=== PATIENT | female | born 1990 ===

== ENCOUNTER → 2021-05-21 16:14 | Outpatient (BNVA) | payer OTHER, SELFPAY | PROVIDERS: PCP Hospitalist; Visit Provider Physician Assistant Surgical ==

== ENCOUNTER → 2021-05-28 08:12 | Outpatient (BNVA) | payer OTHER, SELFPAY | PROVIDERS: PCP Hospitalist; Visit Provider Physician Assistant Surgical ==

== ENCOUNTER 2021-06-02 16:01 | Outpatient (REF) | payer OTHER, SELFPAY ==
[2021-06-04 16:24] LABS: H Pylori Breath Test Negative (Negative)
== END 2021-06-02 16:02 | disposition home or self-care (01) ==
LOC: CF 16:01
PROVIDERS: Visit Provider Physician Assistant Surgical
DX: A04.8 Other specified bacterial intestinal infections (principal)
CPT/HCPCS: 36415; 83013

== ENCOUNTER → 2021-06-19 08:00 | Outpatient (BNVA) | payer OTHER, SELFPAY | PROVIDERS: PCP Hospitalist; Visit Provider Dietitian, Registered | DX: E66.01 Morbid (severe) obesity due to excess calories (principal); Z71.3 Dietary counseling and surveillance | CPT/HCPCS: 97802 ==

== ENCOUNTER → 2021-06-20 08:11 | Outpatient (BNVA) | payer OTHER, SELFPAY | PROVIDERS: PCP Hospitalist; Visit Provider Surgery | DX: Z13.89 Encounter for screening for other disorder (principal) ==

== ENCOUNTER 2021-06-21 09:09 | Outpatient (REF) | payer OTHER, SELFPAY ==
--- NOTE | ~2021-06-21 | XR_ITS ---
EXAMINATION: XR chest 2V CLINICAL INFORMATION: Reason for Exam E66.01 - Morbid (severe) obesity due to excess calories COMPARISON: None TECHNIQUE: 2 views of the chest XR/XR chest 2V FINDINGS/IMPRESSION: Clear lungs. No pneumothorax. No pleural effusion. Normal cardiomediastinal silhouette.
[2021-06-21 09:46] LABS: MANUAL DIFF FLAG NO
[2021-06-21 10:19] LABS: Basophils Percent Auto 0.3 % (0-2); Eosinophils Absolute Auto 0.3 X10*3/uL (0.0-0.4); Eosinophils Percent Auto 4.9 % (0-4); Imm Gran Abs Auto 0.01 X10*3/uL (0.00-0.03); Imm Gran Pct Auto 0.2 % (0.0-0.4); Lymphocytes Absolute Auto 1.6 X10*3/uL (1.2-4.9); Lymphocytes Percent Auto 27.9 % (20-40); Mean Corpuscular HGB Conc 33.3 g/dl (31.0-35.0); Mean Corpuscular Hemoglobin 29.1 pg (27.0-33.0); Mean Corpuscular Volume 87.2 fL (80.0-98.0); Mean Platelet Volume 10.5 fL (9.4-12.3); Monocytes Absolute Auto 0.4 X10*3/uL (0.1-1.2); Monocytes Percent Auto 7.7 % (2-11); Neutrophils Absolute Auto 3.4 x10*3/uL (2.0-8.3); Platelet Count 283 X10*3/uL (160-400); Red Blood Count 5.16 X10*6/uL (4.20-5.50); Red Cell Distribution Width 13.2 % (11.0-16.0); White Blood Count 5.7 X10*3/uL (4.8-10.8)
[2021-06-21 10:28] LABS: Alanine Aminotransferase 30 U/L (0-31); Albumin Level 4.3 g/dL (3.5-5.0); Alkaline Phosphatase 83 U/L (39-117); Anion Gap 12 (12-20); Aspartate Amino Transferase 20 U/L (5-31); Bilirubin Total 0.4 mg/dL (0.0-1.0); Blood Urea Nitrogen 12 mg/dL (9-16); C Reactive Protein 3.17 mg/dL (< or = 0.50); Calcium 9.2 mg/dL (8.4-10.2); Carbon Dioxide 25 mmol/L (22-29); Chloride 107 mmol/L (96-108); Cholesterol 107 mg/dL; Estimated Glomerular Filt Rate > 60; Glucose Random 82 mg/dL (60-115); HDL Cholesterol 42 mg/dL; Iron 78 mcg/dL (30-160); LDL Cholesterol Calculated 55 mg/dl; Percent Iron Saturation 22 % (15-50); Potassium 4.2 mmol/L (3.3-5.1); Sodium 140 mmol/L (135-145); Total Iron Binding Capacity 352 mcg/dL (228-428); Total Protein 7.7 g/dL (6.5-8.0); Triglycerides 50 mg/dL; Unsaturated Iron Binding 274 ug/dL
[2021-06-21 10:29] LABS: Estimated Average Glucose 108 mg/dL; Hemoglobin A1c % 5.4 %
[2021-06-21 10:53] LABS: Ferritin 132 ng/mL (10-122); TSH reflex Free T4 1.71 uIU/mL (0.32-4.0)
[2021-06-21 11:05] LABS: Vitamin D 25-OH Total 14.4 ng/mL (>30)
[2021-06-23 09:33] LABS: Folate 14.4 ng/mL (> or = 4.0); Vitamin B12 639 pg/mL (200-900)
[2021-06-23 12:41] LABS: Calcium (PTHI) 9.4 mg/dL (8.6-10.2); PTHI 57 pg/mL (16-77)
[2021-06-25 06:31] LABS: Zinc 69 mcg/dL (60-130)
[2021-06-25 17:00] LABS: Vitamin A 43 mcg/dL (38-98)
[2021-06-26 16:42] LABS: Vitamin B1 11 nmol/L (8-30)
== END 2021-06-21 09:10 | disposition home or self-care (01) ==
LOC: HO.LAB 09:09
PROVIDERS: PCP Hospitalist; Visit Provider Physician Assistant Surgical
DX: E66.01 Morbid (severe) obesity due to excess calories (principal)
CPT/HCPCS: 36415; 71046; 80053; 80061; 82306; 82607; 82728; 82746; 83036; 83540; 83970; 84425; 84443; 84590; 84630; 85025; 86140

== ENCOUNTER 2021-07-09 08:57 | Outpatient (REF) | payer OTHER, SELFPAY ==
--- NOTE | ~2021-07-09 | US_ITS ---
EXAMINATION: US COMPLETE ABDOMEN WITH LIVER ELASTOGRAPHY CLINICAL INFORMATION: Morbid obesity COMPARISON: None. TECHNIQUE: Real-time imaging of the abdominal viscera. Noninvasive ultrasound liver fibrosis assessment is performed using [employer] ElastPQ point quantification shear wave elastography (2D-SWE) with a C5-2 MHz transducer. Multiple elastography samples are obtained. FINDINGS: PANCREAS: Normal. The visualized pancreatic head and body are normal in appearance. The remainder of the pancreas is obscured from visualization by the overlying bowel gas. ABDOMINAL AORTA: The proximal, middle, and distal aortic segments are normal in caliber. INFERIOR VENA CAVA: Visualized portions are normal. LIVER: There is diffusely increased echogenicity consistent with fatty infiltration. No focal mass identified. No intrahepatic bile duct dilatation is seen. The right lobe measures 14.5 cm in length. The left lobe measures 10.6 cm in length. Portal flow is hepatopedal Shear wave liver elastography median stiffness is 1.34 m/s (reference: normal median stiffness is 1.3 m/s or less). IQR/median stiffness to assess sampling precision is 0.07 (reference: good quality data set is IQR/median stiffness of 0.15 or less). GALLBLADDER: Normal. The gallbladder is physiologically distended without evidence of stones, sludge, polyps, wall thickening or pericholecystic fluid. COMMON BILE DUCT: Normal in caliber measuring 0.5 cm in diameter. RIGHT KIDNEY: Normal. No hydronephrosis. No renal calculi or focal parenchymal lesions. The kidney measures 11.0 cm in maximum dimension. LEFT KIDNEY: Normal. No hydronephrosis. No renal calculi or focal parenchymal lesions. The kidney measures 11.5 cm in maximum dimension. SPLEEN: Normal. The spleen measures 10.2 cm in maximum dimension. FREE FLUID: None. US/US abdomen comp w elastography IMPRESSION: 1. Fatty infiltration of the liver. 2. Liver elastography: In the absence of other known clinical signs, measurements rule out compensated advanced chronic liver disease. If there are known clinical signs, further testing may be needed for confirmation. REFERENCE: Society of Radiologists in Ultrasound Liver Stiffness Thresholds (2020): LIVER STIFFNESS THRESHOLDS: *Liver Stiffness equal or less than 1.3 m/s: High probability of being normal. *Liver Stiffness less than 1.7 m/s: In the absence of other known clinical signs, rules out compensated advanced chronic liver disease. *Liver Stiffness 1.7-2.1 m/s: Suggestive of compensated advanced chronic liver disease but need further test for confirmation. *Liver Stiffness over 2.1 m/s: Rules in compensated advanced chronic liver disease. *Liver Stiffness over 2.4 m/s: Suggestive of clinically significant portal hypertension. QUALITY OF DATA SET: *IQR/Median value equal or less than 0.15 implies a quality data set. *IQR/Median value over 0.15 implies a poor quality data set. SIGNIFICANT CHANGE FROM PRIOR EXAM: Significant change if liver stiffness measurement is 10% or greater from prior exam. OTHER CONSIDERATIONS: The stage of liver fibrosis may be overestimated in the setting of acute hepatitis, liver inflammation, elevated liver function tests, hepatic vascular congestion, obstructive cholestasis, non-fasting state, and infiltrative diseases such as amyloidosis and lymphoma. In some patients with NAFLD, the liver stiffness thresholds for compensated advanced chronic liver disease may be lower. In causes other than viral hepatitis and NAFLD, liver stiffness thresholds are not well established.
--- NOTE | ~2021-07-09 | FL_ITS ---
EXAMINATION: XR FLUOROSCOPY UPPER GI WITH AIR CLINICAL INFORMATION: Morbid obesity. COMPARISON: None TECHNIQUE: Air-contrast upper GI examination. FINDINGS: Patient swallowed thin and thick barium without difficulty. There is normal apposition of the focal cords while saying 'E.' There is normal elevation of the soft palate while saying 'candy.' No nasopharyngeal reflux or tracheal aspiration. There is noted to be cricopharyngeal hypertrophy without evidence of Zenker's diverticulum. No persistent stricture or ulceration is seen within the esophagus. No hiatal hernia was noted. There was free gastroesophageal reflux to the thoracic inlet during positioning on the table. This cleared slowly. No tertiary contractions were appreciated. The stomach appears unremarkable without evidence of abnormal mass or ulceration. There is normal distensibility of the gastric wall. There was no delay in gastric emptying. The duodenal bulb and sweep appeared unremarkable. FLUOROSCOPY TIME: 1.5 minutes DOSE AREA PRODUCT: 12.9 Gy-cm2 (aquino-centimeter squared) FL/FL upper GI w air IMPRESSION: Free gastroesophageal reflux to the level of the thoracic inlet which cleared slowly.
== END 2021-07-09 08:58 | disposition home or self-care (01) ==
LOC: HO.US 08:57
PROVIDERS: PCP Hospitalist; Visit Provider Surgery
DX: Z01.818 Encounter for other preprocedural examination (principal); E66.01 Morbid (severe) obesity due to excess calories; K21.9 Gastro-esophageal reflux disease without esophagitis
CPT/HCPCS: 74246; 76705; 76981

== ENCOUNTER 2021-07-24 07:10 | Emergency (ER) | payer OTHER, SELFPAY ==
[2021-07-24 07:20] VITALS: BP 132/94; PULSE 84; RESP 16; TEMP 37.1; O2SAT 96; BMI 41.9
--- NOTE | 2021-07-24 07:28 | ED_ITS ---
HPI - Dental/Oral General Chief complaint: Dental/Oral Stated complaint: jaw pain Time Seen by Provider: 07/24/21 07:28 Source: patient Mode of arrival: ambulatory Limitations: no limitations History of Present Illness MD Complaint: tooth pain (L sided jaw pain) Onset (ago): day(s) (since Wednesday) Duration: worsening Severity: severe Relieving factors: nothing Exacerbating factors: chewing Context: other (molars are removed, worse in AM, wakes up with jaw pain, job is stressful) Associated symptoms: other (jaw pain, swelling over L TMJ site) Treatment prior to arrival: other (motrin this AM) Related Data Previous Rx's Medication Instructions Recorded albuterol sulfate 90 mcg/actuation 2 puff PO Q4H PRN #8.5 g 06/10/21 aerosol inhaler cetirizine 10 mg tablet 10 mg PO DAILY #90 tab 06/10/21 fluticasone propionate 110 1 puff PO BID #12 g 06/10/21 mcg/actuation HFA aerosol inhaler (Flovent HFA) fluticasone propionate 50 2 spray INTRANASAL DAILY 30 Days 06/10/21 mcg/actuation nasal #16 g spray,suspension (Allergy Relief (fluticasone)) montelukast 10 mg tablet 10 mg PO DAILY #90 tab 06/10/21 cholecalciferol (vitamin D3) 125 125 mcg PO DAILY #30 cap 06/23/21 mcg (5,000 unit) capsule cyclobenzaprine 10 mg tablet 10 mg PO TID PRN #14 tab 07/24/21 prednisone 20 mg tablet 40 mg PO DAILY 4 Days #8 tab 07/24/21 Allergies Allergy/AdvReac Type Severity Reaction Status Date / Time cats Allergy Intermediate watery Uncoded 06/20/21 10:54 eyes, shortness of breath. Review of Systems Review of Systems: Constitutional : No Fever, No Chills ENT/Mouth : No swallowing difficulty, no change in voice, positive dental pain, positive jaw pain, positive facial swelling Eyes: No Eye Pain, No Swelling Cardiovascular : No Chest Pain, No SOB Respiratory : No Cough, No Sputum Gastrointestinal : No Nausea, No Vomiting, No Diarrhea Genitourinary : No Dysuria Musculoskeletal : No Myalgias Skin : No rash Neuro : No Weakness, No Numbness, No Headache PMFSH Past Medical History Attestation statement: The following information was validated with the patient. Medical History (Updated 07/24/21 @ 07:30 by Asha Woods DO) Back pain Physical exam, annual Family History Family History Mother Pre-diabetes Father Hypertension Vertigo Brother No problems noted. Sister Asthma Social History Social History Alcohol intake: current Alcohol intake frequency: holidays/special occasions only Alcohol type: wine Patient Tobacco Use Status: Never used Tobacco Advance Directives: No Advance Directives Information Provided: No Patient : No Physical Exam Vital Signs: Appearance: Alert. Oriented X3. No acute distress. Eyes: Pupils equal, round and reactive to light. ENT: inside of mouth is normal, no signs of decay, fluctuance, abscess, erythema, trismus noted mild, no ttp over L parotid area, L TMJ acutely ttp with palpation and mild swelling noted, no lymphadenopathy no submandibular or sublingual swelling, normal TMs bilaterally, opening mouth shows S curve present. very ttp masseter muscle as well. Acutely tender over L TMJ joint with opening and closing mouth Neck: Normal inspection. Neck supple. CVS: Pulses normal. Respiratory: No respiratory distress. Abdomen: Atraumatic Skin: Skin warm and dry. Normal skin color. Extremities: No lower extremity edema. Neuro: Oriented X 3. No motor deficit. No sensory deficit. MDM - Dental/Oral MDM Narrative Medical decision making narrative: 31 yo female with hx of asthma comes in with L sided jaw pain with no evidence of intraoral infection/ear infection. L TMJ joint is midly swollen with acute pain to the TMJ itself which reproduces pain. Suspect acute TMJ syndrome. She sleeps on that side and often wakes up with jaw pain suspect from grinding. At this time msucle relaxers, prednisone for acute inflammation, NSAIDs. Patient to see dentist and get bite guard. Discharge Plan Discharge Clinical Impression: TMJ syndrome Patient Disposition: Home, Self-Care Instructions: Temporomandibular Disorder (ED), Arthralgia (ED) Additional Instructions: return to ED for any worsening symptoms or concerns try a bite guard from pharmacy you can see your dentist take motrin 400 to 600 mg every 6 hours as needed for pain Prescriptions: New cyclobenzaprine 10 mg tablet 10 mg PO TID PRN (Reason: muscle spasm) Qty: 14 0RF prednisone 20 mg tablet 40 mg PO DAILY 4 Days Qty: 8 0RF No Action cholecalciferol (vitamin D3) 125 mcg (5,000 unit) capsule 125 mcg PO DAILY Qty: 30 3RF cetirizine 10 mg tablet 10 mg PO DAILY Qty: 90 3RF montelukast 10 mg tablet 10 mg PO DAILY Qty: 90 3RF fluticasone propionate [Allergy Relief (fluticasone)] 50 mcg/actuation spra y,suspension 2 spray intranasal DAILY 30 Days Qty: 16 11RF Rx Instructions: administer into each nostril albuterol sulfate 90 mcg/actuation HFA aerosol inhaler 2 puff PO Q4H PRN (Reason: bronchospasm) Qty: 8.5 11RF Flovent HFA 110 mcg/actuation HFA aerosol inhaler 1 puff PO BID Qty: 12 11RF Stand Alone Forms: Work/School Release
[2021-07-24] MEDS: predniSONE 20 MG TABLET 40 MG PO (07:34)
[2021-07-24] MEDS: Cyclobenzaprine HCl 10 MG TABLET PO (07:34)
== END 2021-07-24 07:42 | disposition home or self-care (01) ==
PROVIDERS: Emergency Provider Emergency Medicine; PCP Hospitalist
DX: M26.602 Left temporomandibular joint disorder, unspecified (principal); R68.84 Jaw pain; Z79.899 Other long term (current) drug therapy
CPT/HCPCS: 99283

== ENCOUNTER 2021-10-15 19:44 | Emergency (ER) | payer OTHER, SELFPAY | END 2021-10-15 21:51 | disposition left against medical advice (07) | PROVIDERS: Emergency Provider Emergency Medicine; PCP Hospitalist | DX: R68.84 Jaw pain (principal); F12.10 Cannabis abuse, uncomplicated ==

== ENCOUNTER 2022-03-04 12:09 | Outpatient (REF) | payer OTHER, SELFPAY ==
[2022-03-04 15:59] LABS: Influenza A PCR POSITIVE (Negative); Influenza B PCR NEGATIVE (Negative); Resp Syncy Virus RNA Qual PCR NEGATIVE (Negative); SARS COV2 PCR INHOUSE NEGATIVE (Negative)
== END 2022-03-04 12:10 | disposition home or self-care (01) ==
LOC: HO.LAB 12:09
PROVIDERS: Visit Provider Nurse Practitioner Family
DX: Z20.822 Contact with and (suspected) exposure to COVID-19 (principal); R09.89 Other specified symptoms and signs involving the circulatory and respiratory systems
CPT/HCPCS: 0241U

== ENCOUNTER → 2022-07-10 07:56 | Outpatient (BNVA) | payer OTHER, SELFPAY | PROVIDERS: PCP Hospitalist; Visit Provider Surgery | DX: Z13.89 Encounter for screening for other disorder (principal) ==

== ENCOUNTER 2022-07-20 07:51 | Outpatient (REF) | payer OTHER, SELFPAY ==
[2022-07-20 08:05] LABS: MANUAL DIFF FLAG NO
[2022-07-20 08:12] LABS: Basophils Percent Auto 0.4 % (0-2); Eosinophils Absolute Auto 0.2 X10*3/uL (0.0-0.4); Eosinophils Percent Auto 2.9 % (0-4); Hematocrit 42.7 % (37.0-47.0); Hemoglobin 14.4 g/dl (12.0-16.0); Imm Gran Abs Auto 0.01 X10*3/uL (0.00-0.03); Imm Gran Pct Auto 0.1 % (0.0-0.4); Lymphocytes Absolute Auto 1.8 X10*3/uL (1.2-4.9); Lymphocytes Percent Auto 25.2 % (20-40); Mean Corpuscular HGB Conc 33.7 g/dl (31.0-35.0); Mean Corpuscular Hemoglobin 29.1 pg (27.0-33.0); Mean Corpuscular Volume 86.4 fL (80.0-98.0); Mean Platelet Volume 10.7 fL (9.4-12.3); Monocytes Absolute Auto 0.5 X10*3/uL (0.1-1.2); Monocytes Percent Auto 6.5 % (2-11); Neutrophils Absolute Auto 4.7 x10*3/uL (2.0-8.3); Neutrophils Percent Auto 64.9 % (45-73); Platelet Count 252 X10*3/uL (160-400); Red Blood Count 4.94 X10*6/uL (4.20-5.50); Red Cell Distribution Width 13.2 % (11.0-16.0); White Blood Count 7.2 X10*3/uL (4.8-10.8)
[2022-07-20 08:14] LABS: Estimated Average Glucose 103 mg/dL; Hemoglobin A1c % 5.2 %
--- NOTE | 2022-07-20 08:14 | ECG_ITS ---
Test Reason : morbid obesity Blood Pressure : / mmHG Vent. Rate : 081 BPM Atrial Rate : 081 BPM P-R Int : 150 ms QRS Dur : 084 ms QT Int : 372 ms P-R-T Axes : 060 052 023 degrees QTc Int : 432 ms Normal sinus rhythm Normal ECG No previous ECGs available Referred By: Al Chowdary Electronically Signed By:MU FERGUSON MD
[2022-07-20 09:11] LABS: Alanine Aminotransferase 24 U/L (0-31); Albumin Level 4.1 g/dL (3.5-5.0); Alkaline Phosphatase 65 U/L (39-117); Anion Gap 12 (12-20); Aspartate Amino Transferase 19 U/L (5-31); Bilirubin Total 0.5 mg/dL (0.0-1.0); Blood Urea Nitrogen 10 mg/dL (9-16); C Reactive Protein 1.05 mg/dL (< or = 0.50); Carbon Dioxide 23 mmol/L (22-29); Chloride 109 mmol/L (96-108); Cholesterol 104 mg/dL; Estimated Glomerular Filt Rate > 60; HDL Cholesterol 36 mg/dL; Iron 86 mcg/dL (30-160); LDL Cholesterol Calculated 56 mg/dl; Percent Iron Saturation 29 % (15-50); Potassium 4.3 mmol/L (3.3-5.1); Sodium 140 mmol/L (135-145); Total Iron Binding Capacity 301 mcg/dL (228-428); Triglycerides 62 mg/dL; Unsaturated Iron Binding 215 ug/dL
[2022-07-20 09:12] LABS: Ferritin 99 ng/mL (10-122); Folate 13.1 ng/mL (> or = 4.0); Insulin 26 uU/mL (2-29); TSH reflex Free T4 1.88 uIU/mL (0.32-4.0); Vitamin B12 683 pg/mL (200-900); Vitamin D 25-OH Total 18.8 ng/mL (>30)
[2022-07-20 12:01] LABS: Glucose Random 95 mg/dL (60-115)
[2022-07-21 19:43] LABS: Calcium (PTHI) 8.7 mg/dL (8.6-10.2); PTHI 51 pg/mL (16-77)
[2022-07-24 05:22] LABS: Zinc 75 mcg/dL (60-130)
[2022-07-25 14:52] LABS: Vitamin B1 14 nmol/L (8-30)
[2022-07-26 18:18] LABS: Vitamin A 41 mcg/dL (38-98)
== END 2022-07-20 07:52 | disposition home or self-care (01) ==
LOC: HO.LAB 07:51
PROVIDERS: PCP Hospitalist; Visit Provider Surgery
DX: E66.01 Morbid (severe) obesity due to excess calories (principal); F50.9 Eating disorder, unspecified
CPT/HCPCS: 36415; 80053; 80061; 82306; 82607; 82728; 82746; 83036; 83525; 83540; 83970; 84425; 84443; 84590; 84630; 85025; 86140; 93005

== ENCOUNTER → 2022-08-05 08:03 | Outpatient (BNVA) | payer OTHER, SELFPAY | PROVIDERS: PCP Hospitalist; Visit Provider Physician Assistant Surgical ==

== ENCOUNTER 2022-08-05 18:16 | Outpatient (REF) | payer OTHER, SELFPAY ==
[2022-08-06 14:56] LABS: H Pylori Breath Test Negative (Negative)
== END 2022-08-05 18:17 | disposition home or self-care (01) ==
LOC: HO.LNP 18:16
PROVIDERS: Visit Provider Surgery
DX: E66.01 Morbid (severe) obesity due to excess calories (principal)
CPT/HCPCS: 83013

== ENCOUNTER → 2022-08-24 14:00 | Outpatient (BNVA) | payer OTHER, SELFPAY | PROVIDERS: PCP Hospitalist; Visit Provider Counselor Mental Health ==

== ENCOUNTER → 2022-09-07 08:07 | Outpatient (BNVA) | payer OTHER, SELFPAY | PROVIDERS: PCP Hospitalist; Visit Provider Surgery ==

== ENCOUNTER → 2022-09-11 09:18 | Outpatient (BNVA) | payer OTHER, SELFPAY | PROVIDERS: PCP Hospitalist; Visit Provider Dietitian, Registered | DX: E66.01 Morbid (severe) obesity due to excess calories (principal); Z68.41 Body mass index [BMI] 40.0-44.9, adult; Z71.3 Dietary counseling and surveillance | CPT/HCPCS: 97803 ==

== ENCOUNTER → 2022-09-21 09:00 | Outpatient (BNVA) | payer OTHER, SELFPAY | PROVIDERS: PCP Hospitalist; Visit Provider Counselor Mental Health ==

== ENCOUNTER → 2022-09-25 13:58 | Outpatient (BNVA) | payer OTHER, SELFPAY | PROVIDERS: PCP Hospitalist; Visit Provider Dietitian, Registered | DX: E66.9 Obesity, unspecified (principal); Z71.3 Dietary counseling and surveillance | CPT/HCPCS: 97803 ==

== ENCOUNTER 2022-10-12 13:08 | Outpatient (AMB) | payer OTHER, SELFPAY ==
--- NOTE | 2022-10-12 13:08 | MHC.OFFVISWM ---
Intake VS Expanded 10/12/22 13:16 Height 5 ft 6 in Weight 247 lb 6.4 oz BMI 39.9 BP 120/69 Blood Pressure Location Rt brachial Blood Pressure Position Sitting Pulse 102 H Pulse Source Pulse Oximeter Temp 97.6 F Temperature Source Temporal Artery Scan Pulse Oximetry 95 Oxygen Delivery Method Room Air Body Fat 108.6 Body Fat Percentage 43.9 Free Fat Mass 138.6 Muscle Mass 131.6 Visceral Mass 11.0 Water Mass 99.4 BMR 1,962 Intake Visit Reasons: (OV) F/U [employer] Required: No Allergies cats Allergy (Intermediate, Uncoded 10/12/22 13:12) watery eyes, shortness of breath. HPI HPI Comments History of Present Illness Details 32 yo female returns for f/u for pre op planning weight today 247.4 pounds with a BMI of 39.9. Initial weight on 07/10/22 was 262.2 Weight loss 14.8 pounds She states she just got back from 2 week vacation in [facility]. She brought her shakes but the packaging broke and she only had enough for a couple of days. Meal plan: 2 Isopure (20 gm per scoop) protein shakes (1/2 scoop each in water), 3 Zone Perfect protein bars and one meal (8 forks of meat and 8 forks of salad or vegetables) Drinking 64 oz water daily Exercise plan: stationary bike, daily, 300-330 calories [facility] Medical History Back pain Physical exam, annual Family History Mother Pre-diabetes Father Hypertension Vertigo Brother No problems noted. Sister Asthma Social History Alcohol intake: current Alcohol intake frequency: holidays/special occasions only Alcohol type: wine Patient Tobacco Use Status: Never used Tobacco e-Cigarette/Vaping Use: Never Used Second Hand Smoke Exposure: No service: No Current occupational status: employed Current occupation: [employer] Cognitive needs: No Hearing needs: No Vision needs: Yes Review of Systems Const All systems reviewed & are unremarkable except as noted in HPI and below Physical Exam Const General: healthy appearing and no acute distress Resp Effort & Inspection: normal respiratory effort Auscultation: clear to auscultation bilaterally Cardio Rate: regular rate Rhythm: regular rhythm GI Auscultation: normal bowel sounds Extrem General: Yes normal to inspection Assessment & Plan Assessment & Plan (1) Obesity (BMI 30-39.9): Code(s): E66.9 - Obesity, unspecified Plan: Continue same meal plan except remove one bar Likely surgery 10/29/22, checking on scheduling, if confirmed will send pre-op meal plan Coding Level of Care Code Tele Est Pt Level 2 (07675) Diagnoses Obesity (BMI 30-39.9) E66.9
[2022-10-12 13:16] VITALS: BP 120/69; PULSE 102; TEMP 36.4; O2SAT 95; BMI 39.9
== END 2022-10-12 13:38 | disposition home or self-care (01) ==
PROVIDERS: PCP Hospitalist; Visit Provider Physician Assistant Surgical
DX: E66.9 Obesity, unspecified (principal); Z68.39 Body mass index [BMI] 39.0-39.9, adult
CPT/HCPCS: 99499

== ENCOUNTER → 2022-10-12 13:08 | Outpatient (BNVA) | payer OTHER, SELFPAY | PROVIDERS: PCP Hospitalist; Visit Provider Physician Assistant Surgical ==

== ENCOUNTER 2022-10-20 09:05 | Outpatient (REF) | payer OTHER, SELFPAY ==
[2022-10-20 10:17] LABS: MANUAL DIFF FLAG NO
[2022-10-20 11:12] LABS: Basophils Percent Auto 0.5 % (0-2); Eosinophils Absolute Auto 0.1 X10*3/uL (0.0-0.4); Eosinophils Percent Auto 1.6 % (0-4); Hemoglobin 14.7 g/dl (12.0-16.0); Imm Gran Abs Auto 0.01 X10*3/uL (0.00-0.03); Imm Gran Pct Auto 0.2 % (0.0-0.4); Lymphocytes Absolute Auto 1.9 X10*3/uL (1.2-4.9); Mean Corpuscular HGB Conc 32.7 g/dl (31.0-35.0); Mean Corpuscular Volume 88.8 fL (80.0-98.0); Mean Platelet Volume 11.2 fL (9.4-12.3); Monocytes Absolute Auto 0.3 X10*3/uL (0.1-1.2); Monocytes Percent Auto 5.4 % (2-11); Neutrophils Absolute Auto 3.9 x10*3/uL (2.0-8.3); Neutrophils Percent Auto 62.3 % (45-73); Platelet Count 236 X10*3/uL (160-400); Red Blood Count 5.07 X10*6/uL (4.20-5.50); Red Cell Distribution Width 13.2 % (11.0-16.0); White Blood Count 6.2 X10*3/uL (4.8-10.8)
[2022-10-20 11:20] LABS: Estimated Average Glucose 105 mg/dL; Hemoglobin A1c % 5.3 %
[2022-10-20 11:22] LABS: Partial Thromboplastin Time 28.9 SEC (26.0-36.4)
[2022-10-20 12:17] LABS: Alanine Aminotransferase 31 U/L (0-31); Alkaline Phosphatase 68 U/L (39-117); Anion Gap 15 (12-20); Aspartate Amino Transferase 18 U/L (5-31); Bilirubin Total 0.5 mg/dL (0.0-1.0); Blood Urea Nitrogen 10 mg/dL (9-16); C Reactive Protein 2.11 mg/dL (< or = 0.50); Calcium 9.3 mg/dL (8.4-10.2); Carbon Dioxide 23 mmol/L (22-29); Chloride 107 mmol/L (96-108); Cholesterol 125 mg/dL; Estimated Glomerular Filt Rate > 60; Glucose Random 73 mg/dL (60-115); HDL Cholesterol 40 mg/dL; Iron 78 mcg/dL (30-160); LDL Cholesterol Calculated 72 mg/dl; Percent Iron Saturation 27 % (15-50); Potassium 3.9 mmol/L (3.3-5.1); Sodium 141 mmol/L (135-145); Total Iron Binding Capacity 289 mcg/dL (228-428); Total Protein 7.5 g/dL (6.5-8.0); Triglycerides 68 mg/dL; Unsaturated Iron Binding 211 ug/dL; Vitamin B12 493 pg/mL (200-900)
[2022-10-20 12:39] LABS: Ferritin 124 ng/mL (10-122); TSH reflex Free T4 2.65 uIU/mL (0.32-4.0); Vitamin D 25-OH Total 20.1 ng/mL (>30)
[2022-10-21 19:17] LABS: Calcium (PTHI) 8.9 mg/dL (8.6-10.2); PTHI 46 pg/mL (16-77)
[2022-10-23 02:57] LABS: Vitamin A 43 mcg/dL (38-98)
[2022-10-23 17:08] LABS: Zinc 80 mcg/dL (60-130)
[2022-10-24 11:23] LABS: Vitamin B1 10 nmol/L (8-30)
== END 2022-10-20 09:06 | disposition home or self-care (01) ==
LOC: HO.LAB 09:05
PROVIDERS: Physician Assistant Surgical; PCP Hospitalist; Visit Provider Surgery
DX: Z01.818 Encounter for other preprocedural examination (principal); E66.9 Obesity, unspecified
CPT/HCPCS: 36415; 80053; 80061; 82306; 82607; 82728; 83036; 83540; 83970; 84425; 84443; 84590; 84630; 85025; 85610; 85730; 86140

== ENCOUNTER 2022-10-27 | Day surgery (SDC) | payer OTHER, SELFPAY ==
[2022-10-20 10:37] VITALS: BMI 39.9
--- NOTE | 2022-10-21 08:14 | MHC.SHP ---
Pre-Procedural Eval Section A Date of Service: 10/21/22 The patient is an INPATIENT: No The History & Physical has been completed within 30 days and I have reviewed it.: Yes Section B Chief Complaint: Morbid (severe) obesity due to excess calories Relevant Family History (Specify if Yes): No Relevant Social History: None Present Medications: None Medical History: No relevant PMH History of Previous Operations: No relevant previous surgery Allergies: Allergies Allergy/AdvReac Type Severity Reaction Status Date / Time cats Allergy Intermediate watery Uncoded 10/12/22 13:12 eyes, shortness of breath. Review of Systems Sugical H&P ROS: Negative: Constitution, Cardiovascular, Respiratory, Neurological, Psychiatric, Hem-Onc, Allergic/Immunologic, Gastrointestinal, Genitourinary, Musculoskeletal, Integumentary, Endocrine and Eyes/Ears/Nose/Throat Exam Surgical H&P Exam: Normal: HEENT, Normal: Heart, Normal: Lungs, Normal: Extremities, Normal: Abdomen, Normal: Skin and Normal: Neurological Plan Diagnosis/Plan: Unchanged I have reviewed the history and physical and performed a pertinent physical examination on my patient. No changes have occurred unless specified. Time Spent With Patient Time: Total time managing care of this patient today ____ minutes.
--- NOTE | 2022-10-26 09:07 | HO.ANESPROP2 ---
Documented by User: Casie Delarosa NP 10/26/22 09:08 HPI - Anesthesia Eval Consult details Narrative: 32yo F for Gastrectomy Sleeve,Egd, poss diaphragmatic hernia, poss Ventral hernia,poss open PMFSH Active Problems Active Problems: All Active Problems (Updated 10/20/22 @ 10:27 by La Avitia RN) Asthma, mild intermittent, well-controlled (Acute) Morbid obesity (Acute) Seasonal allergies (Acute) Adjustment disorder (Acute) Cannabis use disorder, mild, abuse (Acute) Right-sided temporomandibular joint pain-dysfunction syndrome (Acute) Viral infection (Acute) Influenza A (Acute) Obesity (BMI 30-39.9) (Acute) Pre-op evaluation (Acute) Back pain (Acute) Past Medical History Medical History Asthma Back pain Migraines Physical exam, annual Family History Family History Mother Pre-diabetes Father Hypertension Vertigo Brother No problems noted. Sister Asthma Social History Social History Are you a primary women's health care nurse practitioner to a significant other at home: No Do you presently have visiting nurse or other home services: No Alcohol intake: current Alcohol intake frequency: holidays/special occasions only Alcohol type: wine Patient Tobacco Use Status: Never used Tobacco e-Cigarette/Vaping Use: Never Used Second Hand Smoke Exposure: No service: No Current occupational status: employed Current occupation: [employer] Cognitive needs: No Hearing needs: No Vision needs: Yes Meds Allergies Allergy/AdvReac Type Severity Reaction Status Date / Time cats Allergy Intermediate watery Uncoded 10/12/22 13:12 eyes, shortness of breath. Home Medications Medication Instructions Recorded Confirmed Last Taken Type fluticasone propionate 50 2 spray intranasal DAILY PRN 10/20/22 10/20/22 Unknown History mcg/actuation nasal Allergy Symptoms spray,suspension (Allergy Relief (fluticasone)) montelukast 10 mg tablet 10 mg PO BEDTIME 10/20/22 10/20/22 Unknown History Exam Exam Date and Time: October 26, 2022 0907 Height,Weight and Vital Signs: Height 5 ft 6 in Weight 112.037 kg Pertinent Lab Results Pertinent Lab Results: Laboratory Tests 10/20/22 10/20/22 10:15 10:15 WBC 6.2 Hgb 14.7 Hct 45.0 Plt Count 236 Sodium 141 Potassium 3.9 Chloride 107 Carbon Dioxide 23 BUN 10 Creatinine 0.75 Narrative Narrative: EKG 07/2022 Vent. Rate : 081 BPM ? ? Atrial Rate : 081 BPM ?? P-R Int : 150 ms? QRS Dur : 084 ms ? ? QT Int : 372 ms ? ? ? P-R-T Axes : 060 052 023 degrees ?? QTc Int : 432 ms ? Normal sinus rhythm Normal ECG No previous ECGs available Assessment and Plan Assessment Anesthesia Assessment: Chart Reviewed Documented by User: Cynthia Miller MD 10/27/22 11:27 [facility] Active Problems Active Problems: All Active Problems (Updated 10/27/22 @ 11:22 by Cynthia Miller MD) Asthma, mild intermittent, well-controlled (Acute) Morbid obesity (Acute) Seasonal allergies (Acute) Adjustment disorder (Acute) Cannabis use disorder/abuse (Acute) Right-sided temporomandibular joint pain-dysfunction syndrome (Acute) Viral infection (Acute) Influenza A (Acute) Obesity (BMI 30-39.9) (Acute) Pre-op evaluation (Acute) Back pain (Acute) Past Medical History Medical History Asthma Back pain Migraines Physical exam, annual Family History Family History Mother Pre-diabetes Father Hypertension Vertigo Brother No problems noted. Sister Asthma Social History Social History Are you a primary women's health care nurse practitioner to a significant other at home: No Do you presently have visiting nurse or other home services: No Alcohol intake: current Alcohol intake frequency: holidays/special occasions only Alcohol type: wine Patient Tobacco Use Status: Never used Tobacco e-Cigarette/Vaping Use: Never Used Second Hand Smoke Exposure: No service: No Current occupational status: employed Current occupation: [employer] Cognitive needs: No Hearing needs: No Vision needs: Yes Meds Allergies Allergy/AdvReac Type Severity Reaction Status Date / Time cats Allergy Intermediate watery Uncoded 10/12/22 13:12 eyes, shortness of breath. Home Medications Medication Instructions Recorded Confirmed Last Taken Type fluticasone propionate 50 2 spray intranasal DAILY PRN 10/20/22 10/20/22 Unknown History mcg/actuation nasal Allergy Symptoms spray,suspension (Allergy Relief (fluticasone)) montelukast 10 mg tablet 10 mg PO BEDTIME 10/20/22 10/20/22 Unknown History
[2022-10-26 13:28] LABS: COVID-19 Test Negative (Negative); IDNOW Serial# 9DB6401D
[2022-10-27] VITALS (14 sets, daily range): BP systolic 125–147; BP diastolic 70–92; PULSE 70–89; RESP 12–20; TEMP 36–36.9; O2SAT 95–100
[2022-10-27 11:35] LABS: UPreg QC Valid YES; Urine Pregnancy NEGATIVE (NEGATIVE)
[2022-10-27] MEDS: Lactated Ringers 1,000 ML 999 ML IV (11:43)
[2022-10-27] MEDS: Aprepitant 32 MG/4.4 ML VIAL IVPUSH (11:50)
[2022-10-27] MEDS: Albuterol Sulfate (0.083%) 2.5 MG/3 ML VIAL.NEB INHALE (12:02)
--- NOTE | 2022-10-27 12:39 | P.BOP_ITS ---
Brief Operative Note Date of Service: 10/27/22 Pre-op diagnosis: Morbid obesity with associated comorbidities (see below) Post-op diagnosis: same Procedure: INITIAL PATIENT BMI ON PRESENTATION AT OUR OFFICE: 42.5 kg/m2 LAST BMI BEFORE SURGERY: 40 kg/m2 COMORBIDITIES: asthma, back pain, GERD, liver steatosis ?The patient presented to the Weight Management Program with significant obesity that was negatively impacting the patient's comorbidities as listed above.? The program is a phased program with a special focus on preoperative medical weight management to promote substantial weight loss and prepare the patients for the second phase of the program: bariatric surgery. The patient participated in an intensive weekly lifestyle ?intervention and exercise program during which the patient ?has lost between the initial office visit and the last preoperative visit 21.6lbs, or 8.08% of initial actual body weight. It was deemed appropriate for the patient to now have bariatric surgery. In light of the current Covid-19 pandemic and the well documented strong association of obesity and increased risk of worse outcomes if infected with Covid-19 (REFERENCES: https://pubmed.ncbi.nlm.nih.gov/08634329/ ,? https://pubmed.ncbi.nlm.nih.gov/14173044/ ), any delay in undergoing bariatric surgery may lead to the patient's worsening health condition and increased?risk of more severe Covid-19 disease if infected. In addition a recent?study from [facility] published in [employer] on 03/17/2021 ([email or web address]) found that, among patients with obesity, substantial weight loss achieved with surgery was associated with improved outcomes of COVID-19 infection. The findings suggest that obesity can be a modifiable risk factor for the severity of COVID-19 infection. In addition, the patient met the BMI-criteria for bariatric surgery based on the BMI on initial presentation. The patient should not be penalized for achieving such weight loss because ?it is not sustainable long-term without surgical intervention and it was achieved in preparation for bariatric surgery ?under my direction and based on my published research ([email or web address]).[email or web address] and? https://www.soard.org/article/C0057-8732(91)63634-X/pdf ) ?that a 10% preoperative weight loss improves long-term weight loss after surgery and reduces perioperative complications.? Insurance carriers such as [facility] have endorsed my recommendations ?and have included in their policies criteria to inc lude a 10% preoperative weight loss requirement. PROCEDURE: Esophago-gastroscopy, laparoscopic sleeve gastrectomy and laparoscopic gastropexy INDICATIONS: This is a 32 year-old female who was electively scheduled for laparoscopic, possibly open sleeve gastrectomy. The risks and complications of the procedure were discussed with the patient in advance, particularly the possibility of ; pulmonary embolism; staple line leak; bleeding; GERD; cardiac, pulmonary, or renal complications; as well as long-term problems such as insufficient weight loss, vitamin deficiency, strictures, or ulcers. The patient understood all the risks, and was in agreement to proceed with surgery. DESCRIPTION OF PROCEDURE: After informed consent was obtained from the patient, the patient was given preoperative antibiotics, and was transferred to the operating room. After successful induction of general anesthesia, pneumatic compression devices were placed on both lower extremities. An upper endoscopy was performed next. The oropharynx and esophagus appeared to be within normal limits. There was no diaphragmatic hernia present with the findings of the preoperative upper GI. The stomach was entered. Then after all fluid and air were suctioned and the stomach was fully decompressed, the scope was withdrawn and secured in the mid esophagus. The patient was then prepped and draped in the usual sterile manner, and abdominal access was established at the right upper quadrant with the Sun technique. A 12 mm blunt port was inserted, and the abdomen was insufflated with CO2 to a pressure of 15 mmHg. Under direct visualization, additional ports were placed, specifically two 5 mm Versi-step ports to the left upper quadrant, and a 5 mm Versi-Step port to the right upper quadrant. 1% lidocaine plain was used to infiltrate all port sites as well as all fascia defects. Using the EndoClose suture passer device, I placed a #1 Polysorb tie across the falciform ligament in order to retract it up against the abdominal wall and prevent injury of the ligament with our instruments during the procedure. Following that, the patient was placed in a steep reverse Trendelenburg position. An additional 5 mm port was placed to the right flank for the Mediflex retractor that was used to retract the left lobe of the liver. The gastro-esophageal fat pad was opened with the ultrasonic device (Thunderbeat, Olympus) and the anterior esophagus and hiatus were exposed. The angle of His was opened with the ultrasonic device the fundus of the stomach from any diaphragmatic and splenic attachments. I then opened the gastrocolic ligament between the transverse colon and the greater curvature of the stomach with the ultrasonic device to enter the lesser sac and facilitate the ligation of the short gastric vessels. I started at a mid-point along the greater curvature and using the Thunderbeat, all short gastric vessels were divided all the way to the angle of His until the left shefali was completely dissected at its entirety. I then divided the gastro-colic ligament distally to a distance of about 3-4 cm proximal to the pylorus. The stomach was then divided transversely with two Endo JOAQUÍN-45 purple and four JOAQUÍN-60 articulating purple loads using the NanoleafIA stapler and loads. Every effort was made that the gastric sleeve had a tubular shape and an even caliber throughout. Once the sleeve resection was completed, the staple line of the gastric sleeve was reinforced with Hemoclips. The resected stomach was retrieved without difficulty from the Sun port. A gastropexy was then performed in order to prevent postoperative GERD and partial gastric volvulus. Several interrupted 2.0 Surgidac sutures were placed between the sleeve's staple line and the previously divided greater omentum and gastro-colic ligament using the Endo-Stitch device. ?An upper endoscopy was performed. There was no narrowing at the GE junction. The scope was easily advanced all the way to the pylorus which was clearly visualized. There was no narrowing anywhere and the sleeve's caliber was even throughout. The sleeve's staple line was inspected and there was no evidence of ischemia, bleeding or dehiscence. At that point the gastroscope was withdrawn from the patient?s mouth while we were decompressing the bowel and the stomach from any remaining air. I looked into the lesser sac to see how the sleeve was situating and it was situating well. There was no bleeding from the staple line, spleen, or short gastric vessels. The Mediflex retractor was removed, and the undersurface of the liver was inspected and there was no bleeding. The patient was placed in supine position. I closed the fascial defect of the 12 mm port site with a figure of eight #1 Polysorb suture. Then 30cc Ropivacaine plain with 10 mg of Dexamethasone were used to infiltrate the fascial closure as well as all skin incisions. A total of 7ml Zynrelef was applied in the Sun wound. At this point, the abdomen was deflated, all ports were removed under direct vision, and no bleeding was noted from any of the port sites. The skin incisions were irrigated with saline and were closed with 4-0 absorbable monofilament sutures. Steri-Strips and OpSites were used to cover all incisions. The patient was extubated and was transferred in stable condition to the recovery room for further care. I was present and performed all villagomez parts of the procedure. Marcus Henry was the bookkeeping assistant. There were no residents to assist with this case. Isiah Chowdary MD, PhD, FACS Surgeon: Al Chowdary MD Anesthesia: GETA, local and other (TAP block and 7ml Zynrelef) Was an Log Peeler used for this Procedure?: No Log Peeler: Glo Henry Estimated blood loss (mL): 10 IV fluids (mL): 2,500 Urine output (mL): 0 (No Banks to record output) Pathology: other (Stomach) Condition: stable Disposition: PACU
--- NOTE | 2022-10-27 15:27 | P.DS_ITS ---
DS: Providers Provider Date of Service: 10/28/22 Primary care physician: Sejal Gonzalez NP DS: Summary Hospital Course Hospital Course: ADMITTING DIAGNOSIS: morbid obesity, asthma DISCHARGE DIAGNOSIS: same, s/p laparoscopic sleeve gastrectomy PAST SURGICAL HISTORY: none PROCEDURE: upper endoscopy, laparoscopic sleeve gastrectomy DISCHARGE SUMMARY: History of Present Illness: The patient is a 32 year-old woman with a BMI of 42.8 kg/m2 and associated co- morbidities as described above. The patient had extensive work-up, lost 14.8 lbs preoperatively and was electively scheduled for laparoscopic, possible open sleeve gastrectomy and gastropexy. Risks and complications of the surgery were discussed with the patient in advance, particularly the possibility of , pulmonary embolism, anastomotic leak, bleeding, bowel injury, GERD, cardiac, renal or pulmonary complications. The patient understood all the risks and was in agreement with the surgical plan. Hospital Course: The patient underwent an uneventful laparoscopic sleeve gastrectomy with gastropexy on the day of admission. Postoperatively, the patient was transferred to the surgical floor. The patient received IV Acetaminophen and IV dilaudid for pain control. Patient was started on bariatric phase 1 diet POD #0. On postoperative day one, the patient was feeling well without nausea, vomiting, fevers, or tachycardia. The patient had some mild incisional pain and the abdomen was soft. On the morning of postoperative day one, the patient was continued on 1 ounce of water or ice every half hour. During the day, the patient did fairly well, having some incisional pain, but able to ambulate adequately and to tolerate liquids well. Since the patient is doing well, we decided that the patient was ready to be discharged. The patient was given instructions to follow-up with me next week and to call my office for any fever over 101, persistent abdominal pain, nausea, vomiting, GERD, symptoms of DVT such as calf tenderness, or leg swelling, or pulmonary embolism such as chest pain or shortness of breath. The patient was also instructed to drink 40-60 ounces of liquids per day using the 1-ounce cups. The patient had been given prescriptions for Tylenol for pain, Zofran prn for nausea, and pantoprazole and carafate previously. The patient was encouraged to ambulate and use the incentive spirometer. The patient was allowed to shower, but no baths, and encouraged to stay active at home. All of these instructions were given to the patient personally. All questions were answered and the patient understood all instructions, the instructions were also given to the patient in print. Time Spent with Patient Time attestation: Total time managing care of this patient today ____ minutes. Discharge coordination time: Less than 30 minutes Quality: Safe Use of Opioids Does Pt have an Active Cancer Diagnosis on the Problem List?: No Quality: Stroke Does the patient have a stroke diagnosis?: No Physical Exam Vital Signs: Vital Signs: Last Vital Signs Temp 97.3 F 10/27/22 11:29 Pulse 76 10/27/22 12:05 Resp 16 10/27/22 12:05 BP 125/75 10/27/22 11:29 Pulse Ox 97 10/27/22 11:29 O2 Del Method Room Air 10/27/22 11:29 BMI result Body Mass Index 39.9 DS: Data Data Completed and Pending Pending studies at discharge: Pending at discharge 10/27/22 14:24 Surgical [PTH] Routine Labs on day of discharge: Laboratory Results - last 24 hr 10/27/22 10/27/22 11:05 11:16 Urine Test NEGATIVE Blood Type B Positive Antibody Screen NEGATIVE Discharge Plan Discharge Patient Disposition: Home, Self-Care Referrals: Sejal Gonzalez NP [Primary Care Provider] - 1 Week Discharge Medications: No Action albuterol sulfate 90 mcg/actuation HFA aerosol inhaler 2 puff PO Q4H PRN (Reason: bronchospasm) Qty: 8.5 11RF Flovent HFA 110 mcg/actuation HFA aerosol inhaler 1 puff PO BID Qty: 12 11RF cholecalciferol (vitamin D3) 125 mcg (5,000 unit) capsule 125 mcg PO DAILY Qty: 30 2RF montelukast 10 mg tablet 10 mg PO BEDTIME fluticasone propionate [Allergy Relief (fluticasone)] 50 mcg/actuation spray,suspension 2 spray intranasal DAILY PRN (Reason: Allergy Symptoms) Rx Instructions: administer into each nostril cetirizine 10 mg tablet 10 mg PO DAILY Qty: 90 3RF ondansetron 4 mg tablet,disintegrating 4 mg PO Q6H PRN (Reason: nausea and vomiting) Qty: 14 0RF pantoprazole 40 mg tablet,delayed release (DR/EC) 40 mg PO DAILY 90 Days Qty: 90 0RF sucralfate 100 mg/mL suspension 10 ml PO BID Qty: 420 3RF Discharge Orders: Discharge Order (Routine); Ordered 10/28/22 Ordered By: Al Chowdary Activity Restrictions/Additional Instructions: No tub baths, sex or returning to work until discussed at first post op appointment. No exercise, alcohol, tobacco or illegal drug use. Continue to use incentive spirometer hourly while awake. Walk in home for 5- 10 minutes every 2 hours during the first week. Continue phase 1 diet today and start phase 2 diet tomorrow morning. Follow all instructions in the bariatric handbook and call with any questions. 1. Please call your doctor or come back to the emergency room should any new symptoms arise. 2. You will receive a courtesy call from [facility] 24-48 hours after discharge. 3. Activity: abstain from alcohol, practice limited stair climbing, no bending, no driving, no exercise, no illicit substances, no lifting, no sex, no tub bath, no work. 4. Diet: continue as discussed with bariatric team.. 5. Dressing Change/Wound Care: Do not change or remove surgical dressings unless they are wet or soiled. 6. Call your doctor if: - Your temperature exceeds 101.5 F - You experience excessive pain or swelling - You have an unexpected reaction to medication - You have excessive bleeding - You experience continued vomiting/nausea - Your incision begins to separate - Your incision shows signs of infection such as increased redness, swelling, excessive pain, heat, or drainage (light blood or clear fluid is normal) 7. General instructions: No lifting greater than 5 lbs for the next 4 weeks. No driving within 24 hours of taking narcotic pain medications. If you do not move your bowels in the next 2 days, please take milk of magnesia over the counter. Please follow the post op diet and do not advance your diet until you are seen in the office in about 2 weeks. Please walk around your home every hour or two to prevent blood clots from forming in your legs. You do not need to wake from sleeping to walk. Please sleep in a bed or couch to prevent kinking at the hips and knees. Please take your incentive spirometer (your lung supervisor parking lot) home with you and use it for the next few days to prevent pneumonias. You may shower, no hot tubs, baths or swimming pools. Please call the office with any questions or concerns such as increasing abdominal pain, fever, chills, shortness of breath, chest pain, leg pain or swelling, or redness or drainage from your incisions. Do not hesitate to contact the office with any questions at . The patient's medical history has been reviewed and they are considered low risk for post op DVT and therefore DVT prophylaxis is not considered necessary. Tra tray after surgery was reviewed. The patient has not disclosed any travel plans during the first 30 days after surgery and they have been advised that within the first 30 days after surgery any bus, plane, train or car travel over 2 hours in duration is contraindicated due to the possibility of developing blood clots from immobility. Any travel, needs to include periods of ambulation of 10 minutes in duration every 2 hours. The patient was instructed to discuss any plans for travel during this period with their bariatric surgeon.
--- NOTE | 2022-10-27 15:33 | PHA.MEDREC ---
Pharmacy Consult ? Medication Reconciliation Pharmacy has reviewed the medication reconciliation completed by nursing. Maggie Archuleta, AshtynD
[2022-10-27] MEDS: Lactated Ringers 1,000 ML 100 ML IVCONT ×2 (15:54→23:53)
[2022-10-27 16:11] LABS: Anion Gap 14 (12-20); Blood Urea Nitrogen 6 mg/dL (9-16); Calcium 8.8 mg/dL (8.4-10.2); Carbon Dioxide 23 mmol/L (22-29); Chloride 106 mmol/L (96-108); Creatinine Clr Calc Pharmacy 145.8; Estimated Glomerular Filt Rate > 60; Glucose Random 103 mg/dL (60-115); Potassium 3.6 mmol/L (3.3-5.1); Sodium 139 mmol/L (135-145)
[2022-10-27 16:12] LABS: Hemoglobin 13.8 g/dl (12.0-16.0)
--- NOTE | 2022-10-27 17:55 | PM.PNGS ---
Subjective Subjective Date of Service: 10/28/22 Interval history: Feels well. Mild incisional pain. She is tolerating phase 1 bariatric diet Physical Exam Vital Signs: Vital Signs: Last Vital Signs Temp 98.4 F 10/27/22 15:27 Pulse 71 10/27/22 17:19 Resp 18 10/27/22 17:19 BP 130/85 10/27/22 17:19 Pulse Ox 99 10/27/22 17:19 O2 Del Method Nasal Cannula wit h Capnography 10/27/22 17:19 O2 Flow Rate 2 10/27/22 17:19 BMI result Body Mass Index 39.9 GI: Inspection: Yes normal to inspection, Yes incision (clean, dry and intact) and Yes obesity Palpation (GI): Soft to palpation Extrem: Right lower extremity: normal to inspection (no calf tenderness) Left lower extremity: normal to inspection (no calf tenderness) Objective Data Active Medications Albuterol Sulfate (Albuterol Sulfate (0.083%) 2.5 Mg/3 Ml Vial.Neb) 2.5 mg INHALE ONCE PRN PRN Reason: Shortness of Breath/Wheezing Last Admin: 10/27/22 12:02 Dose: 2.5 mg Documented By: TEODORO Albuterol Sulfate (Albuterol Sulfate 90 Mcg 8 Gm Inhaler) 2 puff INHALE Q4H PRN PRN Reason: bronchospasm Famotidine (Famotidine/Pf 20 Mg/2 Ml Vial) 20 mg IVPUSH BID DESEAN Fentanyl (Fentanyl Citrate/Pf 100 Mcg/2 Ml Vial) 25 mcg IVPUSH Q5M PRN; Protocol PRN Reason: Pain, Moderate(Pain Scale 4-6) Fluticasone Propionate (Fluticasone Propionate Nasal 16 Gm [place]) 2 spray NOSTRIL-B DAILY PRN PRN Reason: Allergy Symptoms Fluticasone Propionate (Fluticasone Propionate 100 Mcg Blst.W.Dev) 1 puff INHALE RBID DESEAN Hydromorphone HCl (Hydromorphone Hcl 0.5 Mg/0.5 Ml Syringe) 0.25 mg IVPUSH Q5M PRN; Protocol PRN Reason: Pain, Severe (Pain Scale 7-10) Lactated Ringer's (Lr) 1,000 mls @ 100 mls/hr IVCONT .Q10H DESEAN Promethazine HCl 6.25 mg/ (Sodium Chloride) 50.25 mls @ 201 mls/hr IV ONCE PRN PRN Reason: Nausea and Vomiting Lactated Ringer's (Lr) 1,000 mls @ 100 mls/hr IVCONT .Q10H DESEAN Last Admin: 10/27/22 15:54 Dose: 100 mls/hr Documented By: JYOTSNA Montelukast Sodium (Montelukast Sodium 10 Mg Tablet) 10 mg PO BEDTIME DESEAN Ondansetron HCl (Ondansetron Hcl 4 Mg/2 Ml Vial) 4 mg IVPUSH ONCE PRN PRN Reason: Nausea and Vomiting Labs 10/27/22 15:47 10/27/22 15:47 Labs: Laboratory Results - last 24 hr 10/27/22 10/27/22 10/27/22 11:05 11:16 15:47 Anion Gap 14 Estim Creat Clear Calc 145.8 Estimated GFR > 60 Random Glucose 103 Calcium 8.8 Urine Test NEGATIVE Blood Type B Positive Antibody Screen NEGATIVE Procedures Date of Service Date of Service: 10/28/22 Progress Note: A&P Assessment and plan (1) Morbid obesity: Status: Acute Assessment and Plan: s/p laparoscopic sleeve gastrectomy, and gastropexy Doing well Will check am labs and if OK the patient will be discharged home (2) S/P laparoscopic sleeve gastrectomy: Status: Acute (3) Asthma, mild intermittent, well-controlled: Status: Acute (4) Back pain: Status: Inactive (5) GERD (gastroesophageal reflux disease): Status: Acute (6) Steatosis, liver: Status: Acute Time Spent With Patient Time: Total time managing care of this patient today ____ minutes. Quality Stroke Does the patient have a stroke diagnosis?: No VTE Prior VTE?: No VTE Risk Level:: Surgical - moderate VTE Device Contraindication: N/A - Device Ordered VTE Drug Contraindication: Treatment Not Indicated
[2022-10-27] MEDS: 0.9 % Sodium Chloride Flush 3 ML SYRINGE IVFLUSH ×2 (18:27→19:58)
[2022-10-27] MEDS: ondansetron HCL 4 MG/2 ML VIAL IVPUSH (18:27)
[2022-10-27] MEDS: ceFAZolin Sodium/Dextrose,Iso 2 GM/50 ML PIGGYBACK IV (18:27)
[2022-10-27] MEDS: Acetaminophen 1,000 MG/100 ML PIGGYBACK 400 MG IV (19:57)
[2022-10-27] MEDS: Famotidine/PF 20 MG/2 ML VIAL IVPUSH (19:57)
[2022-10-27] MEDS: Montelukast Sodium 10 MG TABLET PO (19:58)
[2022-10-27] MEDS: Fluticasone Propionate 100 MCG BLST.W.DEV 1 PUFF INHALE (20:11)
[2022-10-28 03:44] VITALS: BP 134/68; PULSE 91; RESP 16; TEMP 36.2; O2SAT 93
[2022-10-28 05:31] LABS: MANUAL DIFF FLAG NO
[2022-10-28 05:35] LABS: Basophils Percent Auto 0.2 % (0-2); Hematocrit 40.8 % (37.0-47.0); Hemoglobin 13.9 g/dl (12.0-16.0); Imm Gran Abs Auto 0.03 X10*3/uL (0.00-0.03); Imm Gran Pct Auto 0.3 % (0.0-0.4); Lymphocytes Absolute Auto 0.9 X10*3/uL (1.2-4.9); Lymphocytes Percent Auto 9.4 % (20-40); Mean Corpuscular HGB Conc 34.1 g/dl (31.0-35.0); Mean Corpuscular Hemoglobin 29.6 pg (27.0-33.0); Mean Corpuscular Volume 86.8 fL (80.0-98.0); Mean Platelet Volume 10.8 fL (9.4-12.3); Monocytes Absolute Auto 0.2 X10*3/uL (0.1-1.2); Monocytes Percent Auto 1.7 % (2-11); Neutrophils Absolute Auto 8.5 x10*3/uL (2.0-8.3); Neutrophils Percent Auto 88.4 % (45-73); Platelet Count 260 X10*3/uL (160-400); Red Cell Distribution Width 12.8 % (11.0-16.0); White Blood Count 9.6 X10*3/uL (4.8-10.8)
[2022-10-28 05:50] LABS: Anion Gap 13 (12-20); Blood Urea Nitrogen 5 mg/dL (9-16); Calcium 9.2 mg/dL (8.4-10.2); Carbon Dioxide 22 mmol/L (22-29); Chloride 106 mmol/L (96-108); Creatinine Clr Calc Pharmacy 150.1; Estimated Glomerular Filt Rate > 60; Glucose Random 122 mg/dL (60-115); Sodium 137 mmol/L (135-145)
[2022-10-28 07:09] VITALS: BP 127/69; PULSE 72; RESP 18; TEMP 36.6; O2SAT 95
[2022-10-28] MEDS: Fluticasone Propionate 100 MCG BLST.W.DEV 1 PUFF INHALE (08:59)
[2022-10-28 09:00] VITALS: PULSE 76; RESP 16; O2SAT 98
--- NOTE | 2022-10-28 09:10 | MHC.CM.PN ---
PATIENT IS FULLY INDEPENDENT NO DME OR VNA SERVICES SHE DOES NAME HER SPOUSE HCP AGENT, BUT NOT INTERESTED IN COMPLETING ONE HERE AT THIS TIME. PLAN IS HOME TODAY WITH NO NEED FOR SERVICES. SPOUSE TO TRANSPORT. RN AWARE OF PLAN
[2022-10-28] MEDS: Famotidine/PF 20 MG/2 ML VIAL IVPUSH (09:14)
[2022-10-28] MEDS: 0.9 % Sodium Chloride Flush 3 ML SYRINGE IVFLUSH (09:14)
--- NOTE | 2022-10-28 13:48 | HO.POSTANES ---
Post Anesthesia Evaluation Post Anesthesia Evaluation Date of Service: 10/28/22 Vital Signs: Vital Signs Temp Pulse Resp BP Pulse Ox O2 Del Method 10/28/22 09:00 76 16 10/28/22 07:09 97.8 F 72 18 127/69 95 Room Air 10/28/22 03:44 97.2 F 91 16 134/68 93 Room Air Anesthesia: General Endotracheal-GETA Mental Status: Awake Pain Control: Satisfactory Nausea/Vomiting: None Hydration: Adequate Anesthesia-Related Issues: No Anes. Related Issues
== END 2022-10-28 13:43 | disposition home or self-care (01) ==
LOC: HO.SSS 15:46 → HO.S3 17:48
PROVIDERS: Nurse Practitioner; Physician Assistant; Physician Assistant Surgical; PCP Hospitalist; Visit Provider Surgery
PROC: (CPT 43845; principal; 2022-10-27 12:50)
DX: E66.01 Morbid (severe) obesity due to excess calories (principal); Z68.41 Body mass index [BMI] 40.0-44.9, adult; K21.9 Gastro-esophageal reflux disease without esophagitis; K76.0 Fatty (change of) liver, not elsewhere classified; J45.20 Mild intermittent asthma, uncomplicated; M54.9 Dorsalgia, unspecified; G43.909 Migraine, unspecified, not intractable, without status migrainosus; Z79.899 Other long term (current) drug therapy; Z79.51 Long term (current) use of inhaled steroids; Z20.822 Contact with and (suspected) exposure to COVID-19
CPT/HCPCS: 43775; 43659; 36415; 80048; 81025; 85014; 85018; 85025; 86850; 86900; 86901; 87635; 88304; 88305; 88307; 88342; 94640; A4649; C9088; C9145; J0131; J0690; J1100; J1170; J2250; J2405; J2795; J3010

== ENCOUNTER → 2022-10-27 | Outpatient (BNV) | payer OTHER, SELFPAY | PROVIDERS: PCP Hospitalist; Visit Provider Surgery | DX: E66.01 Morbid (severe) obesity due to excess calories (principal); Z68.41 Body mass index [BMI] 40.0-44.9, adult; K21.9 Gastro-esophageal reflux disease without esophagitis | CPT/HCPCS: 43659; 43775; 99024 ==

== ENCOUNTER 2022-11-02 13:05 | Outpatient (AMB) | payer OTHER, SELFPAY ==
--- NOTE | 2022-11-02 13:38 | A.OFFVIS_ITS ---
Intake VS Expanded 11/02/22 13:41 Height 5 ft 6 in Weight 236 lb 12.8 oz BMI 38.2 BP 114/70 Blood Pressure Location Rt brachial Blood Pressure Position Sitting Pulse 93 Pulse Source Pulse Oximeter Temp 97.6 F Temperature Source Temporal Artery Scan Pulse Oximetry 97 Oxygen Delivery Method Room Air Body Fat 113.6 Body Fat Percentage 48.0 Free Fat Mass 123.2 Muscle Mass 117.0 Visceral Mass 13.0 Water Mass 88.4 BMR 1,771 Intake Visit Reasons: (OV) 6 Days PO LSG 10/27/22 Allergies cats Allergy (Intermediate, Uncoded 10/12/22 13:12) watery eyes, shortness of breath. HPI HPI Comments History of Present Illness Details 32 yo female POD 6 s/p LSG on 10/27/22 pos BM no pain doug 3 celebrate 4 in 1 w 1 scoop each 40 fluids daily PFSH Medical History (Updated 10/28/22 @ 00:05 by Elio Vasques) Adjustment disorder Asthma Back pain Influenza A Migraines Obesity (BMI 30-39.9) Physical exam, annual Pre-op evaluation Seasonal allergies Viral infection Surgical History (Updated 11/02/22 @ 13:[address] CMA) S/P laparoscopic sleeve gastrectomy Family History Mother Pre-diabetes Father Hypertension Vertigo Brother No problems noted. Sister Asthma Social History Household Members: Spouse Housing: Apartment Are you a primary transitions rn care coordinator to a significant other at home: No Do you presently have visiting nurse or other home services: No Alcohol intake: current Alcohol intake frequency: holidays/special occasions only Alcohol type: wine Patient Tobacco Use Status: Never used Tobacco e-Cigarette/Vaping Use: Never Used Second Hand Smoke Exposure: No service: No Current occupational status: employed Current occupation: [employer] Cognitive needs: No Hearing needs: No Vision needs: Yes Physical Exam Vital Signs: Last Vital Signs Temp 97.6 F 11/02/22 13:41 Pulse 93 11/02/22 13:41 BP 114/70 11/02/22 13:41 Pulse Ox 97 11/02/22 13:41 Oxygen Delivery Method Room Air 11/02/22 13:41 BMI result Body Mass Index 38.2 GI Inspection: Yes incision (c/d/i) Assessment & Plan Assessment & Plan (1) S/P laparoscopic sleeve gastrectomy: Code(s): Z98.84 - Bariatric surgery status Plan: POD 6 s/p LSG on 10/27/[address] Chowdary Weight loss prior to surgery was 16.8 pounds or 6.3% TBWL. Original weight on 05/28/21 was 263.2 pounds and op weight was 246.4 pounds. Be sure to text Dr Chowdary exactly 1 week after surgery your weight from your home scale so he can adjust your meal plan. Continue meal plan until f/u w Dai in 3 weeks May shower, no submersion in bath for another week Continue abdominal binder with activity and exercise for the next 2 weeks. Exercise prior to surgery was stationary bike, may resume No abdominal exercises for 6 weeks post operatively Will be emailed link to post op video for review Reminded of the pace of drinking, 2 mL per minute, 1 oz/15 min. Medications: Discontinued montelukast 10 mg PO DAILY 90 tabs 3RF fluticasone propionate 50 mcg/actuation administer into each nostril 2 sprays intranasal DAILY 1 month 16 grams 11RF Coding Level of Care Code Global (02356) Diagnoses S/P laparoscopic sleeve gastrectomy Z98.84
[2022-11-02 13:41] VITALS: BP 114/70; PULSE 93; TEMP 36.4; O2SAT 97; BMI 38.2
== END 2022-11-02 14:56 | disposition home or self-care (01) ==
PROVIDERS: PCP Hospitalist; Visit Provider Physician Assistant Surgical
DX: Z90.3 Acquired absence of stomach [part of] (principal); Z98.84 Bariatric surgery status
CPT/HCPCS: 99024

== ENCOUNTER → 2022-11-02 13:05 | Outpatient (BNVA) | payer OTHER, SELFPAY | PROVIDERS: PCP Hospitalist; Visit Provider Physician Assistant Surgical ==

== ENCOUNTER 2022-11-25 15:38 | Outpatient (AMB) | payer OTHER, SELFPAY ==
--- NOTE | 2022-11-25 15:20 | A.OFFVIS_ITS ---
Intake VS Expanded 11/25/22 15:25 Height 5 ft 6 in Weight 224 lb 12.8 oz BMI 36.3 Intake Visit Reasons: VIDEO PO LSG 10/27/22 Branch Manager Required: No Allergies cats Allergy (Intermediate, Uncoded 10/12/22 13:12) watery eyes, shortness of breath. Medication List - Last Reconciled 11/25/22 by BRADEN Wolff albuterol sulfate 90 mcg/actuation 2 puffs PO Q4H PRN [celebrate MVI PO DAILY] cetirizine 10 mg PO DAILY fluticasone propionate 50 mcg/actuation (Allergy Relief (fluticasone)) 2 sprays intranasal DAILY PRN fluticasone propionate 110 mcg/actuation (Flovent HFA) 1 puff PO BID montelukast 10 mg PO BEDTIME pantoprazole 40 mg PO DAILY 90 days sucralfate 10 mL PO BID HPI HPI Comments History of Present Illness Details This?a?32?yo female who is s/p LSG without hiatal hernia repair on?10/27/22. Presents for 1 month post op visit. Weight today is 224.8 pounds, with a BMI of 36.3. There has been a 38.4 pound weight loss,(initial weight 263.2 pounds) since starting the program on 05/28/21 reflecting a 14.5% total body weight loss and a weight loss of 21.6 pounds since surgery (operative weight 246.4 pounds) reflecting a 8.7% TBWL since surgery. No complaints of nausea, emesis, abdominal pain or reflux. Reports infrequent but normal bowel movements every 2 days. Wishes to continue current meal plan Weight loss prior to surgery was 16.8 pounds or 6.3% TBWL.? Original weight on 05/28/21 was 263.2 pounds and op weight was 246.4 pounds. Present meal plan includes: Celebrate 4 in 1 2 scoops 8-10 am isopure 1 scoop 11-1 isopure 1/2 scoop 2-4 ZP bar 5-8 pm Drinking 40 oz additionally per day of water Exercise routine includes: you tube HIT videos, stationary bike, elliptical. 5 days per week, 2000 [address] per week or more [facility] Medical History Adjustment disorder Asthma Back pain Influenza A Migraines Obesity (BMI 30-39.9) Physical exam, annual Pre-op evaluation Seasonal allergies Viral infection Surgical History S/P laparoscopic sleeve gastrectomy Family History Mother Pre-diabetes Father Hypertension Vertigo Brother No problems noted. Sister Asthma Social History Household Members: Spouse Housing: Apartment Are you a primary care asst to a significant other at home: No Do you presently have visiting nurse or other home services: No Alcohol intake: current Alcohol intake frequency: holidays/special occasions only Alcohol type: wine Patient Tobacco Use Status: Never used Tobacco e-Cigarette/Vaping Use: Never Used Second Hand Smoke Exposure: No service: No Current occupational status: employed Current occupation: [employer] Cognitive needs: No Hearing needs: No Vision needs: Yes Assessment & Plan Assessment & Plan (1) S/P laparoscopic sleeve gastrectomy: Code(s): Z98.84 - Bariatric surgery status Plan: Wishes to continue current meal plan as outlined by Dr Barrow Will arrange f/u w Debbie in 3-4 weeks for further post op care Encouraged to text with any questions or concerns Medications: Discontinued montelukast 10 mg PO DAILY 90 tabs 3RF fluticasone propionate 50 mcg/actuation administer into each nostril 2 sprays intranasal DAILY 1 month 16 grams 11RF Telehealth Telehealth Location of provider rendering services: practice address Location of patient: address on file Patient Identification confirmed using: Name, : Yes Telehealth method: video Patient verbally consented to treatment: Yes Patient verbally consented to billing insurance company: Yes Patient informed of any privacy concerns related to visit: Yes Minutes spent on Phone/Video with Pt.: 12 Coding Level of Care Code Global (67722) Diagnoses S/P laparoscopic sleeve gastrectomy Z98.84
[2022-11-25 15:25] VITALS: BMI 36.3
== END 2022-11-25 15:41 | disposition home or self-care (01) ==
LOC: HO.HBS 15:38
PROVIDERS: PCP Hospitalist; Visit Provider Physician Assistant Surgical
DX: Z98.84 Bariatric surgery status (principal)
CPT/HCPCS: 99024

== ENCOUNTER → 2022-11-25 15:38 | Outpatient (BNVA) | payer SELFPAY | PROVIDERS: PCP Hospitalist; Visit Provider Physician Assistant Surgical ==

== ENCOUNTER 2023-06-18 08:08 | Outpatient (AMB) | payer OTHER, SELFPAY ==
[2023-06-18 08:18] VITALS: BP 108/66; PULSE 68; RESP 13; O2SAT 98; BMI 32.4
--- NOTE | 2023-06-18 08:18 | MHC.PC.OV ---
Vital Signs 06/18/23 08:18 Height 5 ft 6 in Weight 201 lb BMI 32.4 BP 108/66 Blood Pressure Location Lt brachial Position Sitting Respiration 13 Pulse 68 Pulse Source Pulse Oximeter Pulse Oximetry (%) 98 Oxygen Delivery Method Room Air Intake Visit Reasons: PE transfer of care Intake Note: Patient is here for transfer of care from to . Patient reports no concerns today. Lift Mechanic Required: No Accompanied by: Self / Same As Patient Allergies cats Allergy (Intermediate, Uncoded 06/18/23 08:56) watery eyes, shortness of breath. Medication List - Last Reconciled 06/18/23 by Deyanira Tomas, AMMUNITION SUPERVISOR- albuterol sulfate 90 mcg/actuation 2 puffs PO Q4H PRN [celebrate MVI PO DAILY] cetirizine 10 mg PO DAILY fluticasone propionate 50 mcg/actuation (Allergy Relief (fluticasone)) 2 sprays intranasal DAILY PRN montelukast 10 mg PO BEDTIME Tobacco use date assessed: 06/18/23 Dental Screening Dental Screen Date: 06/18/23 Did you have a dental visit in the last 12 months?: Yes Did you have a dental problem in the last 6 months where you did not have access to dental care?: No Was dental information given to patient?: Patient has dentist HPI HPI Comments History of Present Illness Details 33-year-old female with hepatosteatosis, GERD, mild intermittent asthma, cannabis use disorder, TMJ, migraines, adjustment disorder, seasonal allergies Status post laparoscopic sleeve gastrectomy 10/2022 at [facility] Social: 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 Vaccines: Declines flu, Tdap today Specialists Bariatric surgery * no longer following Behavioral health referral placed today Last set of labs done 10/28/2022 showing normal CBC, normal CMP, elevated random glucose of 122 Here today for CPE. Overall feeling well. Reports that her asthma is well controlled. However her insurance does not currently cover her Flovent 110 mcg. Needs an alternative. Sparing use of rescue inhaler. Not currently active with pulmonology. Eyes - wears glasses, last exam about 2 years ago, next one 09/2023 Skin - no issues or concerns Dentist - routine cleanings Mood feeling depressed and a little anxious. Reports were concerns some anxiety. Going through a divorce. Interested in counseling and starting medications. [facility] Medical History Migraines Asthma Obesity (BMI 30-39.9) Back pain Adjustment disorder Seasonal allergies Surgical History S/P laparoscopic sleeve gastrectomy Family History (Updated 06/18/23 @ 08:30 by Rhoda Brooks CMA) Mother Pre-diabetes Father Hypertension Vertigo Brother No problems noted. Sister Asthma Social History (Updated 06/18/23 @ 08:31 by Rhoda Brooks CMA) Household Members: Spouse Housing: Apartment Are you a primary acute care certified nursing assistant to a significant other at home: No Do you presently have visiting nurse or other home services: No Alcohol intake: current Alcohol intake frequency: holidays/special occasions only Alcohol type: wine Patient Tobacco Use Status: Never used Tobacco e-Cigarette/Vaping Use: Never Used Second Hand Smoke Exposure: No Substance Use Type: Marijuana service: No Current occupational status: employed Current occupation: [employer] Cognitive needs: No Hearing needs: No Vision needs: Yes Questionnaire PHQ-9 Over the last 2 weeks, how often have you been bothered by any of the following problems? 1. Little interest or pleasure in doing things: several days 2. Feeling down, depressed, or hopeless: several days 3. Trouble falling or staying asleep, or sleeping too much: not at all 4. Feeling tired or having little energy: several days 5. Poor appetite or overeating: not at all 6. Feeling bad about yourself - or that you are a failure or have let yourself or your family down: several days 7. Trouble concentrating on things, such as reading the newspaper or watching television: not at all 8. Moving or speaking so slowly that other people could have noticed. Or the opposite - being so fidgety or restless that you have been moving around a lot more than usual: not at all 9. Thoughts that you would be better off or of hurting yourself in some way: not at all Total score: 4 Depression Screening Interpretation: Positive Depression Screening Follow-up: Community Mental Health Worker F/U and Follow-up Visit Requested Depression Screening Done: Yes 25885 - PHQ-9 Billing: Yes Source: Developed by Drs. Taiwo Zavaleta, Jeana Childress, Harish Nance and colleagues, with an educational abiodun from [employer]. Thrive Questionnaire Date Thrive assessed: 06/18/23 I am a: Patient What is your living situation today?: I have a steady place to live Within the past 12 months, did the food you bought not last and you didn't have the money to get more?: Never true Within the past 12 months, did you worry whether your food would run out before you got money to buy more?: Never true Do you have trouble paying for medicines?: No Do you have trouble getting transportation to medical appointments?: No Do you have trouble paying your heating and electricity bill?: No Do you have trouble taking care of your child, family member or friend?: No Do you have trouble with day-to-day activities such as bathing, preparing meals, shopping, managing finances, etc.?: No Are you currently unemployed and looking for a job?: No Are you interested in more education?: No Please select the resources that you would like help with: None Currently or been in a relationship where the following occur: no concerns reported THRIVE Score: 0 AUDIT C Alcohol Use Questionnaire (AUDIT-C) 1. How often do you have a drink containing alcohol?: Never 3. How often do you have six or more drinks on one occasion?: Never Total Score: 0 Score Reviewed/Action Taken: Yes CHRISTIE-7 AMB Questionnaire CHRISTIE-7 Date CHRISTIE - 7 assessed: 06/18/23 Feeling nervous, anxious, or on edge: 0 = Not at all Not being able to stop or control worryin = Not at all Worrying too much about different things: 1 = Several days Trouble relaxin = Not at all Being so restless that it is hard to sit still: 0 = Not at all Becoming easily annoyed or irritable: 0 = Not at all Feeling afraid as if something awful might happen: 0 = Not at all Total CHRISTIE-7 score (0-4 normal; 5-9 mild; 10-14 moderate; 15-21 severe): 1 Source: Developed by Jeana Caruso.W. Monroe, Harish Nance and colleagues, with an educational abiodun from [employer]. CHRISTIE-7 Assessment Billing CHRISTIE-7 Assessment Tool: CHRISTIE-7 Assessment [id number] ACT Questionnaire In the past 4 weeks, how much of the time did your asthma keep you from getting as much done at work, school or at home?: None of the time During the past 4 weeks, how often have you had shortness of breath?: More than once a day During the past 4 weeks, how often did your asthma symptoms wake you up at night or earlier than usual in the morning?: Once or twice per week During the past 4 weeks, how often have you had to use your rescue inhaler or nebulizer medication?: 2-3 times a week How would you rate your asthma control during the past 4 weeks?: Well controlled ACT Interpretation: Negative Score: 17 Review of Systems Const Details: Constitutional: Denies fever. Skin: Denies rash. Eye: Denies eye pain. ENMT: Denies sore throat and nasal congestion. Respiratory: Denies shortness of breath and cough. Gastrointestinal: Denies nausea, vomiting or abdominal pain. Cardiovascular: Denies chest pain and syncope. Genitourinary: Denies dysuria. Musculoskeletal: Denies back pain and extremity pain. Neurologic: Denies headaches, confusion, and weakness. Psychiatric: Denies suicidal thoughts and substance abuse. Allergy/ Immunologic: Denies impaired immunity. Physical exam (Primary Care) Vital Signs: Last Vital Signs Pulse 68 06/18/23 08:18 Resp 13 06/18/23 08:18 BP 108/66 06/18/23 08:18 Pulse Ox 98 06/18/23 08:18 Oxygen Delivery Method Room Air 06/18/23 08:18 BMI result Body Mass Index 32.4 BMI Assessment/Plan discussion: High BMI High, discussed plan: weight reduction Tobacco/Smoking Status: Tobacco use Status Tobacco use date assessed 06/18/23 06/18/23 08:29 Patient Tobacco Use Status Never used Tobacco 06/18/23 08:31 e-Cigarette/Vaping Use Never Used 06/18/23 08:31 PHQ-9: PHQ-9 Score PHQ-9: Total score 4 06/18/23 09:32 Depression Screening Interpretation: Positive Depression Screening Follow-up: Community Mental Health Worker F/U and Follow-up Visit Requested Thrive Assessment: Date of Thrive Assessment Date Thrive assessed 06/18/23 06/18/23 08:35 Currently or been in a relationship where the following occur: no concerns reported Const Other: General: Well developed, well nourished, in no acute distress. Appears stated age. Head: Normocephalic, atraumatic. Eyes: Pupils are equal, round and reactive to light and accommodation. Conjunctivae are clear. Vision grossly normal. Ears: TMs clear AU, EACS WNL Nose: Patent, without discharge. Mouth: There are no ulcers or lesions noted. No inflammation, no post nasal drip, no plaques nor exudates. Neck: Supple, no adenopathy, + thyromegaly. Lungs: Clear to auscultation bilaterally. No rales, rhonchi or wheeze noted. Good air flow in all saavedra. Heart: Regular rate and rhythm. No murmurs, click, rubs or gallops are noted. Abdomen: Bowel sounds present in all quadrants. The abdomen is soft, nontender, with no masses or organomegaly noted. No hernias are noted. Musculoskeletal: Joints are nontender, without swelling, redness, or effusions. Range of motion is observed to be normal. Pulses: Peripheral pulses are equal and palpable bilaterally. Extremities: No clubbing, cyanosis nor edema is noted. Neurologic: Gait and station normal. Cranial Nerves 2-12 intact. Motor strength grossly symmetrical and intact. No sensory loss. Balance normal. Skin: No rashes, ulcers, or lesions noted. Turgor is good. Skin color is good. Hair and nails are without abnormalities. Psych: Normal eye contact, affect and mood appropriate, and normal interactions. Patient is alert and appropriate to context. Immunizations Boostrix Tdap 2.5 Lf unit-8 mcg-5 Lf/0.5 mL intramuscular syringe Performing Provider: JESSIE Salinas Performing Location: [facility] Administered by: Haley Lu CMA on 06/18/23 09:33 Dose Route Admin Location Dispensed Lot Number Expiration Date NDC Clean Out Driller 0.5 mL IM Left Deltoid 0.5 mL [id number] 07/24/25 [id number] [employer] VIS Given Date VIS Provided VIS Publication Date 06/18/23 Single Vaccine 20 Eligibility Eligibility Date Funding Source Not VFC Eligible 06/18/23 Private Assessment and Plan Assessment & Plan (1) Physical exam, annual: Code(s): Z00.00 - Encounter for general adult medical examination without abnormal findings (2) Thyromegaly: Comment: Noted on exam. We will check a TSH and TPO antibodies Code(s): E01.0 - Iodine-deficiency related diffuse (endemic) goiter (3) Cervical cancer screening: Code(s): Z12.4 - Encounter for screening for malignant neoplasm of cervix Plan: Refer to registered nurse supervisor for Pap smear. (4) MDD (major depressive disorder): Comment: We will check labs. If labs are normal we will consider starting Celexa or Lexapro. Referral to counselor placed today. Code(s): F32.9 - Major depressive disorder, single episode, unspecified Qualifiers: Active/Remission status: currently active Major depression episode severity: mild Major depression recurrence: recurrent Qualified Code(s): F33.0 - Major depressive disorder, recurrent, mild (5) Steatosis, liver: Comment: We will check labs. Ultrasound done in the past to rule out fibrosis. Code(s): K76.0 - Fatty (change of) liver, not elsewhere classified (6) GERD (gastroesophageal reflux disease): Comment: Resolved status post gastric sleeve Code(s): K21.9 - Gastro-esophageal reflux disease without esophagitis Qualifiers: Esophagitis presence: without esophagitis Qualified Code(s): K21.9 - Gastro-esophageal reflux disease without esophagitis (7) Laboratory exam ordered as part of routine general medical examination: Code(s): Z00.00 - Encounter for general adult medical examination without abnormal findings (8) S/P laparoscopic sleeve gastrectomy: Comment: Check labs. No longer following bariatric surgery per her choice. Code(s): Z98.84 - Bariatric surgery status (9) Asthma, mild intermittent, well-controlled: Comment: Was using flovent 110 mcg 1 puff twice per day. Insurance no longer covering. New prescription sent in for Asmanex 110 mg 2 puffs daily. Refill sent in for her rescue inhaler as well. Code(s): J45.20 - Mild intermittent asthma, uncomplicated Plan RTO 1 WEEK TELEHEALTH F/U LABS AND DISCUSS START CELEXA OR LEXAPRO Orders: Orders Comprehensive [place]. Panel Fast Today F32.9 - Major depressive disorder, single episode, unspecified, K21.9 - Gastro-esophageal reflux disease without esophagitis, K76.0 - Fatty (change of) liver, not elsewhere classified, Z00.00 - Encounter for general adult medical examination without abnormal findings TSH reflex Free T4 Today F32.9 - Major depressive disorder, single episode, unspecified, K21.9 - Gastro-esophageal reflux disease without esophagitis, K76.0 - Fatty (change of) liver, not elsewhere classified, Z00.00 - Encounter for general adult medical examination without abnormal findings TDaP Immunization Today Z23 - Encounter for immunization Thyroid Peroxidase Antibodies Today E01.0 - Iodine-deficiency related diffuse (endemic) goiter Lipid Panel Today F32.9 - Major depressive disorder, single episode, unspecified, K21.9 - Gastro-esophageal reflux disease without esophagitis, K76.0 - Fatty (change of) liver, not elsewhere classified, Z00.00 - Encounter for general adult medical examination without abnormal findings Microalbumin, Random (w Creat) Today F32.9 - Major depressive disorder, single episode, unspecified, K21.9 - Gastro-esophageal reflux disease without esophagitis, K76.0 - Fatty (change of) liver, not elsewhere classified, Z00.00 - Encounter for general adult medical examination without abnormal findings Vitamin D 1,25 dihydroxy Today F32.9 - Major depressive disorder, single episode, unspecified, K21.9 - Gastro-esophageal reflux disease without esophagitis, K76.0 - Fatty (change of) liver, not elsewhere classified, Z00.00 - Encounter for general adult medical examination without abnormal findings Hemoglobin A1c Today F32.9 - Major depressive disorder, single episode, unspecified, K21.9 - Gastro-esophageal reflux disease without esophagitis, K76.0 - Fatty (change of) liver, not elsewhere classified, Z00.00 - Encounter for general adult medical examination without abnormal findings Vitamin B12 and Folate Today F32.9 - Major depressive disorder, single episode, unspecified, K21.9 - Gastro-esophageal reflux disease without esophagitis, K76.0 - Fatty (change of) liver, not elsewhere classified, Z00.00 - Encounter for general adult medical examination without abnormal findings Referrals SENIOR RECRUITER Referral Z12.4 - Encounter for screening for malignant neoplasm of cervix Counseling Referral F32.9 - Major depressive disorder, single episode, unspecified Medications: New mometasone (Asmanex Twisthaler) administer 1 hour before bedtime 2 inhalations inhalation DAILY 1 ea 5RF Refilled albuterol sulfate 90 mcg/actuation 2 puffs PO Q4H PRN 8.5 grams 5RF bronchospasm Patient Instructions: Health screenings for women ages 18 to 39 You should visit your health care provider from time to time, even if you are healthy. The purpose of these visits is to: Screen for medical issues Assess your risk for future medical problems Encourage a healthy lifestyle Update vaccinations and other preventive care services Help you get to know your provider in case of an illness Information Even if you feel fine, you should still see your provider for regular checkups. These visits can help you avoid problems in the future. For example, the only way to find out if you have high blood pressure is to have it checked regularly. High blood sugar and high cholesterol levels also may not have any symptoms in the early stages. A simple blood test can check for these conditions. There are specific times when you should see your provider or receive specific health screenings. The [place] Preventive Services Task Force publishes a list of recommended screenings. Below are screening guidelines for women ages 18 to 39. BLOOD PRESSURE SCREENING Your blood pressure should be checked at least once every 3 to 5 years if: Your blood pressure is in the normal range (top number less than 120 mm Hg and bottom number less than 80 mm Hg) You don't have risk factors for high blood pressure Ask your provider if you need your blood pressure checked more often if: The top number is 120 to 129 mm Hg or the bottom number is 70 to 79 mm Hg You have diabetes, heart disease, kidney problems, are overweight, or have certain other health conditions You have a first-degree relative with high blood pressure You are Black You had high blood pressure during a If the top number is 130 mm Hg or greater or the bottom number is 80 mm Hg or greater, this is considered stage 1 hypertension. Schedule an appointment with your provider to learn how you can reduce your blood pressure. Watch for blood pressure screenings in your area. Ask your provider if you can stop in to have your blood pressure checked. BREAST CANCER SCREENING Experts do not agree about the benefits of breast self-exams in finding breast cancer or saving lives. Talk to your provider about what is best for you. A screening mammogram is not recommended for most women under age 40. Your provider may discuss and recommend mammograms, MRI scans, or ultrasounds if you have an increased risk for breast cancer, such as: A mother or sister who had breast cancer at a young age (most often starting screening earlier than the age the close relative was diagnosed) You carry a high-risk genetic marker CERVICAL CANCER SCREENING Cervical cancer screening should start at age 21 years unless your provider advises otherwise. After the first test: Women ages 21 through 29 should have a Pap test every 3 years. Exoprts do not agree on whether HPV testing is recommended for this age group. Women ages 30 through 65 should be screened with either a Pap test every 3 years or the HPV test every 5 years or both tests every 5 years (called cotesting ). Women who have been treated for precancer (cervical dysplasia) should continue to have Pap tests for 20 years after treatment or until age 65, whichever is longer. If you have had your uterus and cervix removed (total hysterectomy), and you have not been diagnosed with cervical cancer or precancer (high grade cervical neoplasia), you do not need cervical cancer screening. CHOLESTEROL SCREENING Cholesterol screening should begin at: Age 45 for women with no known risk factors for coronary heart disease Age 20 for women with known risk factors for coronary heart disease Repeat cholesterol screening should take place: Every 5 years for women with normal cholesterol levels More often if changes occur in lifestyle (including weight gain and diet) More often if you have diabetes, heart disease, kidney problems, or certain other conditions DIABETES SCREENING You should be screened for diabetes starting at age 35 and then repeated every 3 years if you have no risk factors for diabetes. Screening may need to start earlier and be repeated more often if you have other risk factors for diabetes, such as: You have a first degree relative with diabetes. You are overweight or have obesity. You have high blood pressure, prediabetes, or a history of heart disease. Screening for diabetes should be done if you are planning to become and you are overweight and have other risk factors such as high blood pressure. DENTAL EXAM Go to the dentist once or twice every year for an exam and cleaning. Your dentist will evaluate if you need more frequent visits. EYE EXAM Have an eye exam every 5 to 10 years before age 40. If you have vision problems, have an eye exam every 2 years or more often if recommended by your provider. You should have an eye exam that includes an examination of your retina (back of your eye) at least every year if you have diabetes. IMMUNIZATIONS Commonly needed vaccines include: Flu shot: get one every year. COVID-19 vaccine: ask your provider what is best for you. Tetanus-diphtheria and acellular pertussis (Tdap) vaccine: have one at or after age 19 as one of your tetanus-diphtheria vaccines if you did not receive it as an adolescent. Tetanus-diphtheria: have a booster (or Tdap) every 10 years. Varicella vaccine: receive 2 doses if you never had chickenpox or the varicella vaccine. Hepatitis B vaccine: receive 2, 3, or 4 doses, depending on your exact circumstances. Measles, mumps, and rubella (MMR) vaccine: receive 1 to 2 doses if you are not already immune to MMR. Your provider can tell you if you are immune. Ask your provider about the human papillomavirus (HPV) vaccine if: You have not received the HPV vaccine in the past You have not completed the full vaccine series (you should catch up on this shot) Ask your provider if you should receive other immunizations if you have certain health problems that increase your risk for some diseases such as pneumonia. INFECTIOUS DISEASE SCREENING Women who are sexually active should be screened for chlamydia and gonorrhea up until age 25. Women 25 years and older should be screened for chlamydia and gonorrhea if at high risk. Screening for hepatitis C: All adults ages 18 to 79 should get a one-time test for hepatitis C. people should be screened at every . Screening for human immunodeficiency virus (HIV): All people ages 15 to 65 should get a one-time test for HIV. Depending on your lifestyle and medical history, you may also need to be screened for infections such as syphilis and HIV, as well as other infections. PHYSICAL EXAM All adults should visit their provider from time to time, even if they are healthy. The purpose of these visits is to: Screen for disease Assess your risk of future medical problems Encourage a healthy lifestyle Update your vaccinations and other preventive care services Maintain a relationship with a provider in case of an illness Your height, weight, and BMI should be checked at every exam. During your exam, your provider may ask you about: Depression and anxiety Diet and exercise Alcohol and tobacco use Safety issues, such as using seat belts, smoke detectors, and intimate partner violence Your medicines and risk for interactions SKIN SELF-EXAM Your provider may check your skin for signs of skin cancer, especially if you're at high risk, such as if you: Have had skin cancer before Have close relatives with skin cancer Have a weakened immune system OTHER SCREENING Talk with your provider about colon cancer screening if you have a strong family history of colon cancer or polyps, or if you have had inflammatory bowel disease or polyps yourself. Routine bone density screening of women under 40 is not recommended. Coding Level of Care Code Est Pt Prev Care 18-39y(78766) Diagnoses Physical exam, annual Z00.00 Thyromegaly E01.0 Cervical cancer screening Z12.4 Mild episode of recurrent major depressive disorder F33.0 Active/Remission status: currently active Major depression episode severity: mild Major depression recurrence: recurrent Steatosis, liver K76.0 Gastroesophageal reflux disease without esophagitis K21.9 Esophagitis presence: without esophagitis Laboratory exam ordered as part of routine general medical examination Z00.00 S/P laparoscopic sleeve gastrectomy Z98.84 Asthma, mild intermittent, well-controlled J45.20 Additional Codes CHRISTIE-7 Assessment Billing - CHRISTIE-7 Assessment Tool: CHRISTIE-7 Assessment [id number] ([id number])
== END 2023-06-18 09:40 | disposition home or self-care (01) ==
PROVIDERS: PCP Hospitalist; Visit Provider Nurse Practitioner Family
DX: Z00.00 Encounter for general adult medical examination without abnormal findings (principal); F33.0 Major depressive disorder, recurrent, mild; E01.0 Iodine-deficiency related diffuse (endemic) goiter; Z23 Encounter for immunization; K76.0 Fatty (change of) liver, not elsewhere classified; K21.9 Gastro-esophageal reflux disease without esophagitis; Z98.84 Bariatric surgery status; J45.20 Mild intermittent asthma, uncomplicated
CPT/HCPCS: 90471; 90715; 99395

== ENCOUNTER 2023-06-18 09:47 | Outpatient (REF) | payer OTHER, SELFPAY ==
[2023-06-18 11:51] LABS: Estimated Average Glucose 103 mg/dL; Hemoglobin A1c % 5.2 % (<6.0)
[2023-06-18 12:03] LABS: Alanine Aminotransferase 14 U/L (0-31); Alkaline Phosphatase 87 U/L (39-117); Anion Gap 9 (12-20); Aspartate Amino Transferase 15 U/L (5-31); Bilirubin Total 0.5 mg/dL (0.0-1.0); Blood Urea Nitrogen 9 mg/dL (9-16); Carbon Dioxide 27 mmol/L (22-29); Chloride 107 mmol/L (96-108); Cholesterol 104 mg/dL (<200); Estimated Glomerular Filt Rate > 60; Glucose Fasting 81 mg/dL (60-99); HDL Cholesterol 47 mg/dL (>40); LDL Cholesterol Calculated 49 mg/dL (<100); Potassium 3.7 mmol/L (3.3-5.1); Sodium 139 mmol/L (135-145); Total Protein 7.3 g/dL (6.5-8.0); Triglycerides 41 mg/dL (<150)
[2023-06-18 12:19] LABS: TSH reflex Free T4 1.19 uIU/mL (0.32-4.0)
[2023-06-18 12:54] LABS: Creatinine Urine 203.91 mg/dL; Microalbum/Creatinine Ratio Ur 3.4 ug/mg cr (<30)
[2023-06-18 15:08] LABS: Folate 10.7 ng/mL (> or = 4.0); Vitamin B12 598 pg/mL (200-900)
[2023-06-23 23:49] LABS: VITAMIN D (1,25 OH) D3 43 pg/mL; Vit D (1,25-Dihydroxy) Total 43 pg/mL (18-72); Vitamin D (1,25 OH) D2 <8 pg/mL
== END 2023-06-18 09:48 | disposition home or self-care (01) ==
LOC: HO.WFDLDS 09:47
PROVIDERS: Visit Provider Nurse Practitioner Family
DX: Z00.00 Encounter for general adult medical examination without abnormal findings (principal); F32.9 Major depressive disorder, single episode, unspecified; K21.9 Gastro-esophageal reflux disease without esophagitis; K76.0 Fatty (change of) liver, not elsewhere classified
CPT/HCPCS: 36415; 80053; 80061; 82043; 82570; 82607; 82652; 82746; 83036; 84443

== ENCOUNTER 2023-06-25 15:51 | Outpatient (AMB) | payer OTHER, SELFPAY ==
--- NOTE | 2023-06-25 15:45 | MHC.PC.OV ---
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 Medication List - Last Reconciled 06/25/23 by Deyanira Tomas, [facility]- albuterol sulfate 90 mcg/actuation 2 puffs PO Q4H PRN [celebrate MVI PO DAILY] cetirizine 10 mg PO DAILY escitalopram oxalate (Lexapro) 5 mg PO DAILY fluticasone propionate 50 mcg/actuation (Allergy Relief (fluticasone)) 2 sprays intranasal DAILY PRN mometasone (Asmanex Twisthaler) 2 inhalations inhalation DAILY montelukast 10 mg PO BEDTIME Tobacco use date assessed: 06/25/23 Dental Screening Dental Screen Date: 06/18/23 HPI HPI Comments History of Present Illness Details 33-year-old female with hepatosteatosis, GERD, mild intermittent asthma, cannabis use disorder, TMJ, migraines, adjustment disorder, seasonal allergies Status post laparoscopic sleeve gastrectomy Health maintenance [facility]ists Bariatric surgery Behavioral health Labs 06/18/2023 a CMP, hemoglobin A1c 5 point, lipids, TSH, normal urine microalbumin creatinine, normal b12, Vit D WNL Telehealth visit today to f/u on labs - normal TPO AB not resulted. I will ask lab if this was drawn or not? Did get call for counseling - appt pending [facility] Medical History Migraines Asthma Obesity (BMI 30-39.9) Back pain Adjustment disorder Seasonal allergies Surgical History S/P laparoscopic sleeve gastrectomy Family History (Updated 06/18/23 @ 08:30 by Rhoda Brooks CMA) Mother Pre-diabetes Father Hypertension Vertigo Brother No problems noted. Sister Asthma Social History (Updated 06/18/23 @ 08:31 by Rhoda Brooks CMA) Household Members: Spouse Housing: Apartment Are you a primary career development associate to a significant other at home: No Do you presently have visiting nurse or other home services: No Alcohol intake: current Alcohol intake frequency: holidays/special occasions only Alcohol type: wine Patient Tobacco Use Status: Never used Tobacco e-Cigarette/Vaping Use: Never Used Second Hand Smoke Exposure: No Substance Use Type: Marijuana service: No Current occupational status: employed Current occupation: [employer] Cognitive needs: No Hearing needs: No Vision needs: Yes Questionnaire Thrive Questionnaire Date Thrive assessed: 06/18/23 CHRISTIE-7 AMB Questionnaire CHRISTIE-7 Date CHRISTIE - 7 assessed: 06/18/23 Source: Developed by Drs. Taiwo Zavaleta, Jeana Childress, Harish Nance and colleagues, with an educational abiodun from [email or web address]. Physical exam (Primary Care) Tobacco/Smoking Status: Tobacco use Status Tobacco use date assessed 06/25/23 06/25/23 15:55 Patient Tobacco Use Status Never used Tobacco 06/25/23 15:46 e-Cigarette/Vaping Use Never Used 06/25/23 15:46 Thrive Assessment: Date of Thrive Assessment Date Thrive assessed 06/18/23 06/25/23 15:46 Telehealth Telehealth Location of provider rendering services: practice address Location of patient: address on file Patient Identification confirmed using: Name, : Yes Telehealth method: voice only Patient verbally consented to treatment: Yes Patient verbally consented to billing insurance company: Yes Patient informed of any privacy concerns related to visit: Yes Minutes spent on Phone/Video with Pt.: 6 Assessment and Plan Assessment & Plan (1) Thyromegaly: Comment: Noted on exam. Normal TSH Pending TPO antibodies >> will ask lab about TPO AB Code(s): E01.0 - Iodine-deficiency related diffuse (endemic) goiter (2) MDD (major depressive disorder): Comment: Start Lexapro QD . Referral to counselor in place FU in 6 weeks Code(s): F32.9 - Major depressive disorder, single episode, unspecified Qualifiers: Major depression recurrence: recurrent Active/Remission status: currently active Major depression episode severity: mild Qualified Code(s): F33.0 - Major depressive disorder, recurrent, mild Medications: New escitalopram oxalate (Lexapro) 5 mg PO DAILY 90 tabs 0RF Patient Instructions: message sent to office to schedule appt in 6 weeks, telehealth Coding Level of Care Code Tele Est Pt Level 1 (97417) Diagnoses Thyromegaly E01.0 Mild episode of recurrent major depressive disorder F33.0 Major depression recurrence: recurrent Active/Remission status: currently active Major depression episode severity: mild
== END 2023-06-29 08:55 | disposition home or self-care (01) ==
LOC: HO.HMGFM 15:51
PROVIDERS: PCP Hospitalist; Visit Provider Nurse Practitioner Family
DX: E01.0 Iodine-deficiency related diffuse (endemic) goiter (principal); F33.0 Major depressive disorder, recurrent, mild
CPT/HCPCS: 99212

== ENCOUNTER 2023-08-11 16:15 | Outpatient (AMB) | payer OTHER, SELFPAY ==
--- NOTE | 2023-08-11 16:08 | A.OFFPC_ITS ---
Intake Visit Reasons: discus flare ups per iris Allergies cats Allergy (Intermediate, Uncoded 08/11/23 16:09) watery eyes, shortness of breath. Medication List - Last Reconciled 08/11/23 [facility] albuterol sulfate 90 mcg/actuation 2 puffs PO Q4H PRN [celebrate MVI PO DAILY] cetirizine 10 mg PO DAILY escitalopram oxalate (Lexapro) 5 mg PO DAILY fluticasone propionate 50 mcg/actuation (Allergy Relief (fluticasone)) 2 sprays intranasal DAILY PRN mometasone (Asmanex Twisthaler) 2 inhalations inhalation DAILY montelukast 10 mg PO DAILY Tobacco use date assessed: 06/25/23 Dental Screening Dental Screen Date: 06/18/23 HPI HPI Comments History of Present Illness Details Telehealth visit today for complaints of a TMJ flare. Reports that over the last week or or so she developed TMJ pain on the left side. Has been taking Motrin without relief. Does admit to flare-ups occur usually on the right side however her right side is only mildly sore at the current time. Continues to experience stress. 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 In regards to her stress and mood she continues to take the escitalopram 5 mg p.o. daily. Has been about 6 weeks since she is started this medication. Her partner reports that she has less ruminating thoughts. She feels like she is able to stop and think about what is bothering her and sort things out much easier than before. Continues to have some depressive symptoms. Denies SI and HI. Plan: Increase escitalopram from 5 mg to 10 mg daily. Start cyclobenzaprine 10 mg p.o. q.day p.r.n., meloxicam 15 mg p.o. q.day p.r.n.. Avoid NSAIDs while taking meloxicam. Be sure to take meloxicam with food. Telehealth visit in 6 weeks to follow up on increase the escitalopram. Medicine defer office to arrange for this. [facility], [facility] Medical History Migraines Asthma Obesity (BMI 30-39.9) Back pain Adjustment disorder Seasonal allergies Surgical History S/P laparoscopic sleeve gastrectomy Family History (Updated 06/18/23 @ 08:30 by Rhoda Brooks CMA) Mother Pre-diabetes Father Hypertension Vertigo Brother No problems noted. Sister Asthma Social History (Updated 06/18/23 @ 08:31 by Rhoda Brooks CMA) Household Members: Spouse Housing: Apartment Are you a primary direct care supervisor to a significant other at home: No Do you presently have visiting nurse or other home services: No Alcohol intake: current Alcohol intake frequency: holidays/special occasions only Alcohol type: wine Patient Tobacco Use Status: Never used Tobacco e-Cigarette/Vaping Use: Never Used Second Hand Smoke Exposure: No Substance Use Type: Marijuana service: No Current occupational status: employed Current occupation: [employer] Cognitive needs: No Hearing needs: No Vision needs: Yes Questionnaire Thrive Questionnaire Date Thrive assessed: 06/18/23 CHRISTIE-7 AMB Questionnaire CHRISTIE-7 Date CHRISTIE - 7 assessed: 06/18/23 Source: Developed by Drs. Taiwo Zavaleta, Jeana Childress, Harish Nance and colleagues, with an educational abiodun from [employer]. Physical exam (Primary Care) Tobacco/Smoking Status: Tobacco use Status Tobacco use date assessed 06/25/23 06/25/23 15:55 Patient Tobacco Use Status Never used Tobacco 06/25/23 15:46 e-Cigarette/Vaping Use Never Used 06/25/23 15:46 Thrive Assessment: Date of Thrive Assessment Date Thrive assessed 06/18/23 06/25/23 15:46 Telehealth Telehealth Telehealth Platform: Telephone Location of provider rendering services: practice address Location of patient: address on file Patient Identification confirmed using: Name, : Yes Telehealth method: voice only Patient verbally consented to treatment: Yes Patient verbally consented to billing insurance company: Yes Patient informed of any privacy concerns related to visit: Yes Minutes spent on Phone/Video with Pt.: 8 Assessment and Plan Assessment & Plan (1) TMJ arthralgia: Code(s): M26.629 - Arthralgia of temporomandibular joint, unspecified side Qualifiers: Laterality: left Qualified Code(s): M26.622 - Arthralgia of left temporomandibular joint (2) MDD (major depressive disorder): Comment: counselor referral active Code(s): F32.9 - Major depressive disorder, single episode, unspecified Qualifiers: Major depression recurrence: recurrent Active/Remission status: currently active Major depression episode severity: mild Qualified Code(s): F33.0 - Major depressive disorder, recurrent, mild Plan This note is constructed using voice recognition software. While every effort has been made to ensure accuracy in sleeve fixer, still errors may have been included Sometimes, these errors may affect the content or meaning of the given sentence . Medications: New cyclobenzaprine 10 mg PO BEDTIME PRN 20 tabs 0RF muscle spasm escitalopram oxalate 10 mg PO DAILY 90 tabs 0RF meloxicam 15 mg PO DAILY PRN 30 tabs 1RF pain Patient Instructions: Return to office in 6 weeks to follow up on increasing the citalopram. Sooner as needed. Telehealth visit is fine. Coding Level of Care Code Tele Est Pt Level 1 (09157) Diagnoses Arthralgia of left temporomandibular joint M26.622 Laterality: left Mild episode of recurrent major depressive disorder F33.0 Major depression recurrence: recurrent Active/Remission status: currently active Major depression episode severity: mild
== END 2023-08-11 16:17 | disposition home or self-care (01) ==
LOC: HO.HMGFM 16:15
PROVIDERS: PCP Nurse Practitioner Family; Visit Provider Nurse Practitioner Family
DX: M26.622 Arthralgia of left temporomandibular joint (principal); F33.0 Major depressive disorder, recurrent, mild
CPT/HCPCS: 99211; 99212

== ENCOUNTER 2023-09-20 13:04 | Outpatient (AMB) | payer OTHER, SELFPAY ==
--- NOTE | 2023-09-20 13:01 | A.OFFPC_ITS ---
Intake Visit Reasons: f/u increase of ecitalopram Intake Note: Patient would like to discuss anxiety and medication. Allergies cats Allergy (Intermediate, Uncoded 09/20/23 13:03) watery eyes, shortness of breath. Medication List - Last Reconciled 09/20/23 by Deyanira Tomas, [facility]- albuterol sulfate 90 mcg/actuation 2 puffs PO Q4H PRN [celebrate MVI PO DAILY] cetirizine 10 mg PO DAILY cyclobenzaprine 10 mg PO BEDTIME PRN escitalopram oxalate 10 mg PO DAILY fluticasone propionate 50 mcg/actuation (Allergy Relief (fluticasone)) 2 sprays intranasal DAILY PRN meloxicam 15 mg PO DAILY PRN mometasone (Asmanex Twisthaler) 2 inhalations inhalation DAILY montelukast 10 mg PO DAILY Tobacco use date assessed: 06/25/23 Dental Screening Dental Screen Date: 06/18/23 HPI HPI Comments History of Present Illness Details Telehealth visit today for follow up on depression and anxiety. Since last office visit has been tolerating compliant of the increase in the escitalopram to 10 mg daily. While previously on the 5 mg dose she was suffering breakthrough depressive symptoms she is now suffering breakthrough anxiety symptoms with improved depressive symptoms on the 10 mg dose. She reports no new social stressors. School is now over for the summer. The anxiety is only there some of the time. Has limited sleep disruptions related to mood. Denies any self medication, SI/HI. Her partner also admitted that she is noticed some increased anxiety in [place]. Discussed options of adding a p.r.n. anxiolytic something like hydroxyzine to the current regimen versus increasing the escitalopram to 15 mg daily. Patient reports that she has tried a friend's Xanax in the past and this knocked her out and she did not like the way that it made her feel so she is hesitant to start an anxiolytic. Made aware that hydroxyzine is not the same drug class as a Xanax and would not have the same side effect profile. Be that as it may I think there is room for improvement in regards to the depression and the anxiety. Therefore the mutual decision was made to increase her escitalopram from 10 mg daily to 15 mg daily with a telehealth follow up in 6 weeks, sooner should something change. A note has been sent to the front office staff to call and arrange with a 6 week follow up This note is constructed using voice recognition software. While every effort has been made to ensure accuracy in apprentice, still errors may have been included Sometimes, these errors may affect the content or meaning of the given sentence . [facility] Medical History Migraines Asthma Obesity (BMI 30-39.9) Back pain Adjustment disorder Seasonal allergies Surgical History S/P laparoscopic sleeve gastrectomy Family History (Updated 06/18/23 @ 08:30 by Rhoda Brooks CMA) Mother Pre-diabetes Father Hypertension Vertigo Brother No problems noted. Sister Asthma Social History (Updated 06/18/23 @ 08:31 by Rhoda Brooks CMA) Household Members: Spouse Housing: Apartment Are you a primary health care social worker to a significant other at home: No Do you presently have visiting nurse or other home services: No Alcohol intake: current Alcohol intake frequency: holidays/special occasions only Alcohol type: wine Patient Tobacco Use Status: Never used Tobacco e-Cigarette/Vaping Use: Never Used Second Hand Smoke Exposure: No Substance Use Type: Marijuana service: No Current occupational status: employed Current occupation: [employer] Cognitive needs: No Hearing needs: No Vision needs: Yes Questionnaire Thrive Questionnaire Date Thrive assessed: 06/18/23 CHRISTIE-7 AMB Questionnaire CHRISTIE-7 Date CHRISTIE - 7 assessed: 06/18/23 Source: Developed by Drs. Taiwo Zavaleta, Jeana Childress, Harish Nance and colleagues, with an educational abiodun from [employer]. Physical exam (Primary Care) Tobacco/Smoking Status: Tobacco use Status Tobacco use date assessed 06/25/23 09/20/23 13:03 Patient Tobacco Use Status Never used Tobacco 09/20/23 13:03 e-Cigarette/Vaping Use Never Used 09/20/23 13:03 Thrive Assessment: Date of Thrive Assessment Date Thrive assessed 06/18/23 09/20/23 13:03 Telehealth Telehealth Telehealth Platform: Telephone Location of provider rendering services: practice address Location of patient: address on file Patient Identification confirmed using: Name, : Yes Telehealth method: voice only Patient verbally consented to treatment: Yes Patient verbally consented to billing insurance company: Yes Patient informed of any privacy concerns related to visit: Yes Minutes spent on Phone/Video with Pt.: 9 Assessment and Plan Assessment & Plan (1) MDD (major depressive disorder): Comment: counselor referral active Code(s): F32.9 - Major depressive disorder, single episode, unspecified Qualifiers: Major depression recurrence: recurrent Active/Remission status: mauri linares active Major depression episode severity: mild Qualified Code(s): F33.0 - Major depressive disorder, recurrent, mild (2) CHRISTIE (generalized anxiety disorder): Code(s): F41.1 - Generalized anxiety disorder Medications: New escitalopram oxalate take w/ 10 mg tab for 15mg dose 5 mg PO DAILY 30 tabs 1RF Changed From escitalopram oxalate 10 mg PO DAILY 90 tabs 0RF To escitalopram oxalate take w/ 5 mg tab for 15mg dose 10 mg PO DAILY 90 tabs 0RF Coding Level of Care Code Tele Est Pt Level 1 (58298) Diagnoses Mild episode of recurrent major depressive disorder F33.0 Major depression recurrence: recurrent Active/Remission status: currently active Major depression episode severity: mild CHRISTIE (generalized anxiety disorder) F41.1
== END 2023-09-20 16:56 | disposition home or self-care (01) ==
LOC: HO.HMGFM 13:04
PROVIDERS: PCP Nurse Practitioner Family; Visit Provider Nurse Practitioner Family
DX: F33.0 Major depressive disorder, recurrent, mild (principal); F41.1 Generalized anxiety disorder
CPT/HCPCS: 99212

== ENCOUNTER 2024-01-21 10:30 | Outpatient (AMB) | payer OTHER, SELFPAY ==
--- NOTE | 2024-01-21 10:34 | A.OFFPC_ITS ---
Vital Signs 01/21/24 10:38 Height 5 ft 6 in Weight 196 lb BMI 31.6 BP 118/70 Blood Pressure Location Lt brachial Position Sitting Respiration 13 Pulse 88 Pulse Source Pulse Oximeter Pulse Oximetry (%) 99 Oxygen Delivery Method Room Air Intake Visit Reasons: f/u on med changes Intake Note: follow up on med changes Allergies cats Allergy (Intermediate, Uncoded 01/21/24 11:01) watery eyes, shortness of breath. Medication List - Last Reconciled 01/21/24 by ALIE SalinasP- albuterol sulfate 90 mcg/actuation 2 puffs PO Q4H PRN [celebrate MVI PO DAILY] cetirizine 10 mg PO DAILY cyclobenzaprine 10 mg PO BEDTIME PRN fluticasone propionate 50 mcg/actuation (Allergy Relief (fluticasone)) 2 sprays intranasal DAILY PRN fluticasone propionate 110 mcg/actuation inhalation meloxicam 15 mg PO DAILY PRN montelukast 10 mg PO DAILY Tobacco use date assessed: 06/25/23 Dental Screening Dental Screen Date: 06/18/23 HPI HPI Comments History of Present Illness Details 33-year-old female with hepatosteatosis, GERD, mild intermittent asthma, cannabis use disorder, TMJ, migraines, MDD, CHRISTIE , seasonal allergies Status post laparoscopic sleeve gastrectomy 10/2022 at [facility] [place] Social: 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 Vaccines: Declines flu, Tdap 05/2023 Specialists Bariatric surgery * no longer following Behavioral health referral placed Here today to fu on mood and asthma Since last office visit, she Missed escitalopram 15 for a few days and then stopped. This was 3 weeks ago. Now does not feel good emotionally. Having dark thoughts irritability, anxiety, panicked, mood swings Yesterday had consult w/ new therapist, next appt Wednesday. Denies negative coping. Denies SI/HI. + support system, Girlfriend. Cont to go through divorce Work/school is going fine. Regular stress. She would like to start back on medications. Escitalopram and see only medica tion that she was ever been on. While this was working wonders she still had breakthrough anxiety and wonders if there is anything else that she can try. Asthma - has a cough, productive. Was sick a few days ago, Sx resolved except cough. Using inhalers as directed. Needs refills on all meds. Exam Awake alert NAD Sclera and conjunctiva clear bilat Nares patent, turbinates within normal limits, no sinus tenderness with palpation bilat TM intact and clear bilat MMM, pharynx WNL RRR LS clear but diminished throughout no cough Mood and affect appropriate Plan: Refill all meds She Would like to try something other than the escitalopram as she cont to have breakthrough anxiety. Will trial Paxil 10mg and titrate to effect. Ok to take once per day at anytime that feels good. Cont care w/ counselor Offered in office updraft, declined d/t timing. Prednisone 40 mg for 5 days to help asthma. Educated on possible effects on mood. She was taking this and tolerated it in the past. If cough continues or worsen advised for her to follow up. Cont inhalers. Otherwise I would like to see her back in 6 weeks to follow up on Paxil start. This note is constructed using voice recognition software. While every effort has been made to ensure accuracy in clinical esthetician, still errors may have been included Sometimes, these errors may affect the content or meaning of the given sentence . Total time spent caring for the patient today was 30 minutes. This includes time spent before the visit reviewing the chart, time spent during the visit, and time spent after the visit on documentation [facility] Medical History Migraines Asthma Obesity (BMI 30-39.9) Back pain Adjustment disorder Seasonal allergies Surgical History S/P laparoscopic sleeve gastrectomy Family History (Updated 06/18/23 @ 08:30 by Rhoda Brooks CMA) Mother Pre-diabetes Father Hypertension Vertigo Brother No problems noted. Sister Asthma Social History (Updated 06/18/23 @ 08:31 by Rhoda Brooks CMA) Household Members: Spouse Housing: Apartment Are you a primary care program director to a significant other at home: No Do you presently have visiting nurse or other home services: No Alcohol intake: current Alcohol intake frequency: holidays/special occasions only Alcohol type: wine Patient Tobacco Use Status: Never used Tobacco e-Cigarette/Vaping Use: Never Used Second Hand Smoke Exposure: No Substance Use Type: Marijuana service: No Current occupational status: employed Current occupation: [employer] Cognitive needs: No Hearing needs: No Vision needs: Yes Questionnaire PHQ-9 Over the last 2 weeks, how often have you been bothered by any of the following problems? 1. Little interest or pleasure in doing things: not at all 2. Feeling down, depressed, or hopeless: more than half the days 3. Trouble falling or staying asleep, or sleeping too much: several days 4. Feeling tired or having little energy: several days 5. Poor appetite or overeating: several days 6. Feeling bad about yourself - or that you are a failure or have let yourself or your family down: several days 7. Trouble concentrating on things, such as reading the newspaper or watching television: more than half the days 8. Moving or speaking so slowly that other people could have noticed. Or the opposite - being so fidgety or restless that you have been moving around a lot more than usual: several days 9. Thoughts that you would be better off or of hurting yourself in some way: not at all Total score: 9 [id number] - PHQ-9 Billing: Yes Source: Developed by Drs. Taiwo Zavaleta, Jeana Childress, Harish Nance and colleagues, with an educational abiodun from [employer]. Thrive Questionnaire Date Thrive assessed: 01/21/24 I am a: Patient What is your living situation today?: I have a steady place to live Within the past 12 months, did the food you bought not last and you didn't have the money to get more?: I choose not to answer this question Within the past 12 months, did you worry whether your food would run out before you got money to buy more?: I choose not to answer this question Do you have trouble paying for medicines?: I choose not to answer this question Do you have trouble getting transportation to medical appointments?: No Do you have trouble paying your heating and electricity bill?: I choose not to answer this question Do you have trouble taking care of your child, family member or friend?: I choose not to answer this question Do you have trouble with day-to-day activities such as bathing, preparing meals, shopping, managing finances, etc.?: I choose not to answer this question Are you currently unemployed and looking for a job?: No Are you interested in more education?: Yes Please select the resources that you would like help with: None Currently or been in a relationship where the following occur: I choose not to answer THRIVE Score: 0 AUDIT C Alcohol Use Questionnaire (AUDIT-C) 1. How often do you have a drink containing alcohol?: 2-4 times a month 2. How many drinks containing alcohol do you have on a typical day when you are drinking?: 1 or 2 3. How often do you have six or more drinks on one occasion?: Never Total Score: 2 CHRISTIE-7 AMB Questionnaire CHRISTIE-7 Date CHRISTIE - 7 assessed: 01/21/24 Feeling nervous, anxious, or on edge: 2 = More than half the days Not being able to stop or control worryin = More than half the days Worrying too much about different things: 2 = More than half the days Trouble relaxin = Several days Being so restless that it is hard to sit still: 1 = Several days Becoming easily annoyed or irritable: 1 = Several days Feeling afraid as if something awful might happen: 1 = Several days Total CHRSITIE-7 score (0-4 normal; 5-9 mild; 10-14 moderate; 15-21 severe): 10 Source: Developed by Drs. Taiwo Zavaleta, Jeana Childress, Harish Nance and colleagues, with an educational abiodun from [employer]. CHRISTIE-7 Assessment Billing CHRISTIE-7 Assessment Tool: CHRISTIE-7 Assessment 46402 Physical exam (Primary Care) Vital Signs: Last Vital Signs Pulse 88 01/21/24 10:38 Resp 13 01/21/24 10:38 BP 118/70 01/21/24 10:38 Pulse Ox 99 01/21/24 10:38 Oxygen Delivery Method Room Air 01/21/24 10:38 BMI result Body Mass Index 31.6 Tobacco/Smoking Status: Tobacco use Status Tobacco use date assessed 06/25/23 01/21/24 10:36 Patient Tobacco Use Status Never used Tobacco 01/21/24 10:36 e-Cigarette/Vaping Use Never Used 01/21/24 10:36 PHQ-9: PHQ-9 Score PHQ-9: Total score 9 01/21/24 11:01 Thrive Assessment: Date of Thrive Assessment Date Thrive assessed 01/21/24 01/21/24 10:36 Currently or been in a relationship where the following occur: I choose not to answer Coding Level of Care Code Est Pt Level 4 (40578) Complex EM visit Add On G2211 Diagnoses CHRISTIE (generalized anxiety disorder) F41.1 Mild episode of recurrent major depressive disorder F33.0 Major depression recurrence: recurrent Active/Remission status: currently active Major depression episode severity: mild Asthma, mild intermittent, well-controlled J45.20 Additional Codes CHRISTIE-7 Assessment Billing - CHRISTIE-7 Assessment Tool: CHRISTIE-7 Assessment [id number] ([id number]) Assessment & Plan Assessment & Plan (1) CHRISTIE (generalized anxiety disorder): Code(s): F41.1 - Generalized anxiety disorder Category: Medical Plan: . (2) MDD (major depressive disorder): Comment: counselor referral active Code(s): F32.9 - Major depressive disorder, single episode, unspecified Category: Medical Qualifiers: Major depression recurrence: recurrent Active/Remission status: currently active Major depression episode severity: mild Qualified Code(s): F33.0 - Major depressive disorder, recurrent, mild Plan: . (3) Asthma, mild intermittent, well-controlled: Comment: . Code(s): J45.20 - Mild intermittent asthma, uncomplicated Category: Medical Plan: . Medications: New fluticasone propionate 110 mcg/actuation 1 puff inhalation BID 12 grams 12RF multivitamin 1 tab PO DAILY 90 tabs 2RF paroxetine HCl 10 mg PO DAILY 30 tabs 1RF prednisone 40 mg (2 x 20 mg) PO DAILY 10 tabs 0RF fluticasone propionate 50 mcg/actuation (Allergy Relief (fluticasone)) administer into each nostril 2 sprays intranasal DAILY PRN 16 grams 8RF Allergy Symptoms Refilled albuterol sulfate 90 mcg/actuation 2 puffs PO Q4H PRN 8.5 grams 5RF bronchospasm cyclobenzaprine 10 mg PO BEDTIME PRN 20 tabs 0RF muscle spasm meloxicam 15 mg PO DAILY PRN 30 tabs 1RF pain
[2024-01-21 10:38] VITALS: BP 118/70; PULSE 88; RESP 13; O2SAT 99; BMI 31.6
== END 2024-01-21 11:25 | disposition home or self-care (01) ==
LOC: HO.HMCFM 10:31
PROVIDERS: PCP Nurse Practitioner Family; Visit Provider Nurse Practitioner Family
DX: F41.1 Generalized anxiety disorder (principal); F33.0 Major depressive disorder, recurrent, mild; J45.20 Mild intermittent asthma, uncomplicated

== ENCOUNTER → 2024-01-21 10:30 | Outpatient (BNVA) | payer OTHER, SELFPAY | PROVIDERS: PCP Nurse Practitioner Family; Visit Provider Nurse Practitioner Family | DX: F41.1 Generalized anxiety disorder (principal); F33.0 Major depressive disorder, recurrent, mild; J45.20 Mild intermittent asthma, uncomplicated | CPT/HCPCS: 96127 ==

== ENCOUNTER 2024-02-29 15:37 | Outpatient (AMB) | payer OTHER, SELFPAY ==
--- NOTE | 2024-02-29 15:54 | A.OFFPC_ITS ---
Intake Visit Reasons: fu start paxil/asthma tele or in person Allergies cats Allergy (Intermediate, Uncoded 02/29/24 16:05) watery eyes, shortness of breath. Medication List - Last Reconciled 02/29/24 by Deyanira Tomas [facility]- albuterol sulfate 90 mcg/actuation 2 puffs PO Q4H PRN cetirizine 10 mg PO DAILY cyclobenzaprine 10 mg PO BEDTIME PRN fluticasone propionate 110 mcg/actuation 1 puff inhalation BID fluticasone propionate 50 mcg/actuation (Allergy Relief (fluticasone)) 2 sprays intranasal DAILY PRN meloxicam 15 mg PO DAILY PRN montelukast 10 mg PO DAILY multivitamin 1 tab PO DAILY paroxetine HCl 10 mg PO DAILY Tobacco use date assessed: 06/25/23 Dental Screening Dental Screen Date: 06/18/23 HPI HPI Comments History of Present Illness Details 33-year-old female with hepatosteatosis, GERD, mild intermittent asthma, cannabis use disorder, TMJ, migraines, MDD, CHRISTIE , seasonal allergies History of Present Illness The patient is a 33-year-old female presenting with follow-up concerns regarding the initiation of Paxil 10 mg for anxiety and depression. She was previously diagnosed with these conditions, which prompted the introduction of medication to manage the symptoms. The patient reported experiencing anxiety that manifeste d with worrying thoughts and feelings of tension. Depressive symptoms included low mood and diminished interest in activities. The treatment with Paxil was initiated to address these symptoms, and this visit intends to evaluate the patient's response to the medication thus far. Completed 5 mg and has been on 10mg for 3 days. Taking at night interrupted sleep. This is better and she is now taking in the AM and sleeping better. Partner notes + mood improvement. She no longer has dark thoughts or agitation. Denies SI/HI. Cont weekly counseling which has been helpful Asthma is well controlled. Using CHAVEZ infrequently. Needs singulair refill. Postnasal gtt not controlled w/ Flonase. Wonders if there is anything else to help the thick nasal mucous Plan - Anxiety: Continue monitoring the patie nt?s response to Paxil 10 mg, with a focus on any changes in symptoms. No adjustments to the medication will be made at this time. - Depression: Assess the effectiveness o f the current Paxil dosage over time and consider future adjustments if symptoms persist or worsen. No changes to the treatment plan at present. -Cont counseling - Cont inhalers, singulair -Start nasal ipratropium. Cont flonase Patient was informed and verbally consented to the use of an ambient scribe for clinic note documentation during this visit. RTO 6-8 weeks fu MDD CHRISTIE Asthma sooner PRN Total time spent caring for the patient today was 15 minutes. This includes time spent before the visit reviewing the chart, time spent during the visit, and time spent after the visit on documentation [facility] Medical History Migraines Asthma Obesity (BMI 30-39.9) Back pain Adjustment disorder Seasonal allergies Surgical History S/P laparoscopic sleeve gastrectomy Family History (Updated 06/18/23 @ 08:30 by Rhoda Brooks CMA) Mother Pre-diabetes Father Hypertension Vertigo Brother No problems noted. Sister Asthma Social History (Updated 06/18/23 @ 08:31 by Rhoda Brooks CMA) Household Members: Spouse Housing: Apartment Are you a primary primary care nurse to a significant other at home: No Do you presently have visiting nurse or other home services: No Alcohol intake: current Alcohol intake frequency: holidays/special occasions only Alcohol type: wine Patient Tobacco Use Status: Never used Tobacco e-Cigarette/Vaping Use: Never Used Second Hand Smoke Exposure: No Substance Use Type: Marijuana service: No Current occupational status: employed Current occupation: [employer] Cognitive needs: No Hearing needs: No Vision needs: Yes Questionnaire Thrive Questionnaire Date Thrive assessed: 01/21/24 CHRISTIE-7 AMB Questionnaire CHRISTIE-7 Date CHRISTIE - 7 assessed: 01/21/24 Source: Developed by Drs. Taiwo Zavaleta, Jeana Childress, Harish Nance and colleagues, with an educational abiodun from [employer]. Physical exam (Primary Care) Tobacco/Smoking Status: Tobacco use Status Tobacco use date assessed 06/25/23 01/21/24 10:36 Patient Tobacco Use Status Never used Tobacco 01/21/24 10:36 e-Cigarette/Vaping Use Never Used 01/21/24 10:36 Thrive Assessment: Date of Thrive Assessment Date Thrive assessed 01/21/24 01/21/24 10:36 Telehealth Telehealth Telehealth Platform: [facility] Location of provider rendering services: practice address Location of patient: address on file Patient Identification confirmed using: Name, : Yes Telehealth method: voice only Patient verbally consented to treatment: Yes Patient verbally consented to billing insurance company: Yes Patient informed of any privacy concerns related to visit: Yes Minutes spent on Phone/Video with Pt.: 8 Coding Level of Care Code Tele Est Pt Level 3 (35659) Complex EM visit Add On G2211 Diagnoses CHRISTIE (generalized anxiety disorder) F41.1 Mild episode of recurrent major depressive disorder F33.0 Major depression recurrence: recurrent Active/Remission status: currently active Major depression episode severity: mild Asthma, mild intermittent, well-controlled J45.20 Assessment & Plan Assessment & Plan (1) CHRISTIE (generalized anxiety disorder): Code(s): F41.1 - Generalized anxiety disorder Category: Medical (2) MDD (major depressive disorder): Comment: counselor referral active Code(s): F32.9 - Major depressive disorder, single episode, unspecified Category: Medical Qualifiers: Major depression recurrence: recurrent Active/Remission status: currently active Major depression episode severity: mild Qualified Code(s): F33.0 - Major depressive disorder, recurrent, mild (3) Asthma, mild intermittent, well-controlled: Comment: . Code(s): J45.20 - Mild intermittent asthma, uncomplicated Category: Medical Plan . Medications: New ipratropium bromide administer into each nostril 2 sprays intranasal BID 30 mL 12RF Refilled montelukast 10 mg PO DAILY 90 tabs 3RF
== END 2024-02-29 16:18 | disposition home or self-care (01) ==
LOC: HO.HMCFM 15:37
PROVIDERS: PCP Nurse Practitioner Family; Visit Provider Nurse Practitioner Family
DX: F41.1 Generalized anxiety disorder (principal); F33.0 Major depressive disorder, recurrent, mild; J45.20 Mild intermittent asthma, uncomplicated

== ENCOUNTER 2024-06-07 14:40 | Outpatient (AMB) | payer OTHER, SELFPAY ==
--- NOTE | 2024-06-07 16:53 | A.OFFPC_ITS ---
Intake Visit Reasons: med review Allergies cats Allergy (Intermediate, Uncoded 06/07/24 16:53) watery eyes, shortness of breath. Medication List - Last Reconciled 06/07/24 by ALIE SalinasP- albuterol sulfate 90 mcg/actuation 2 puffs PO Q4H PRN cetirizine 10 mg PO DAILY cyclobenzaprine 10 mg PO BEDTIME PRN fluticasone propionate 110 mcg/actuation 1 puff inhalation BID fluticasone propionate 50 mcg/actuation (Allergy Relief (fluticasone)) 2 sprays intranasal DAILY PRN ipratropium bromide 2 sprays intranasal BID meloxicam 15 mg PO DAILY PRN montelukast 10 mg PO DAILY multivitamin 1 tab PO DAILY paroxetine HCl 10 mg PO DAILY Tobacco use date assessed: 06/07/24 Dental Screening Dental Screen Date: 06/07/24 Did you have a dental visit in the last 12 months?: Yes Did you have a dental problem in the last 6 months where you did not have access to dental care?: No Was dental information given to patient?: Patient has dentist HPI HPI Comments History of Present Illness Details 34-year-old female with hepatosteatosis, GERD, mild intermittent asthma, cannabis use disorder, TMJ, migraines, MDD, CHRISTIE , seasonal allergies History of Present Illness - The patient is a 34-year-old female, f ollow-up on anxiety and depression management. She exhibits persistent irritability and depressive episodes lasting up to a week. The current regimen includes Paxil 10 mg taken every morning. Despite this, the patient continues to experience symptoms, indicating a potential need for dosage adjustment. The patient also reports low energy and a lack of interest in activities. She denies sleep disturbances or suicidal thoughts but reports symptoms of anxiety such as nervousness, excessive worry, and restlessness. The morning dosing of medication has improved sleep disturbances associated with evening use. Cont in counseling, this has been helpful. Assessment and Plan 1. Generalized Anxiety Disorder and Rosy r Depressive Disorder: The patient's Paxil dose will be increased to 20 mg daily to better manage her symptoms of anxiety and depression. The change in dosage from 10 mg to 20 mg is considered clinically appropriate and safe. The patient will maintain morning dosing to avoid sleep disruption. Follow-up is planned in six weeks, with instructions to contact the office if a scheduled follow-up is not promptly communicated. The patient will continue her current therapeutic counseling sessions. Telehealth Attestation This encounter was conducted via telehealth. I attest that the documentation accurately reflects the details of the encounter. The patient has been explained that this is an interactive (audio/video) telehealth encounter and what that consists of. The patient understands and wishes to proceed. [email or web address] platform was used. Total time spent caring for the patient today was 15 minutes. This includes time spent before the visit reviewing the chart, time spent during the visit, and time spent after the visit on documentation, reviewing laboratory results, diagnostic imaging, medications, performing a medically necessary evaluation, counseling on diagnoses, care coordination, ordering appropriate tests, ordering appropriate medications, review of tests performed by other providers, reporting test results with the patient, communication with other healthcare providers. [facility] Medical History Migraines Asthma Obesity (BMI 30-39.9) Back pain Adjustment disorder Seasonal allergies Surgical History S/P laparoscopic sleeve gastrectomy Family History (Updated 06/18/23 @ 08:30 by Rhoda Brooks CMA) Mother Pre-diabetes Father Hypertension Vertigo Brother No problems noted. Sister Asthma Social History (Updated 06/18/23 @ 08:31 by Rhoda Brooks CMA) Household Members: Spouse Housing: Apartment Are you a primary direct care supervisor to a significant other at home: No Do you presently have visiting nurse or other home services: No Alcohol intake: current Alcohol intake frequency: holidays/special occasions only Alcohol type: wine Patient Tobacco Use Status: Never used Tobacco e-Cigarette/Vaping Use: Never Used Second Hand Smoke Exposure: No Substance Use Type: Marijuana service: No Current occupational status: employed Current occupation: [employer] Cognitive needs: No Hearing needs: No Vision needs: Yes Questionnaire PHQ-9 Over the last 2 weeks, how often have you been bothered by any of the following problems? 1. Little interest or pleasure in doing things: several days 2. Feeling down, depressed, or hopeless: several days 3. Trouble falling or staying asleep, or sleeping too much: not at all 4. Feeling tired or having little energy: several days 5. Poor appetite or overeating: several days 6. Feeling bad about yourself - or that you are a failure or have let yourself or your family down: not at all 7. Trouble concentrating on things, such as reading the newspaper or watching television: several days 8. Moving or speaking so slowly that other people could have noticed. Or the opposite - being so fidgety or restless that you have been moving around a lot more than usual: not at all 9. Thoughts that you would be better off or of hurting yourself in some way: not at all Total score: 5 Depression Screening Interpretation: Positive Depression Screening Done: Yes Source: Developed by Drs. Taiwo Zavaleta, Harish Maldonado and colleagues, with an educational abiodun from [employer]. Thrive Questionnaire Date Thrive assessed: 01/21/24 CHRISTEI-7 AMB Questionnaire CHRISTIE-7 Date CHRISTIE - 7 assessed: 06/07/24 Feeling nervous, anxious, or on edge: 1 = Several days Not being able to stop or control worryin = Several days Worrying too much about different things: 1 = Several days Trouble relaxin = Several days Being so restless that it is hard to sit still: 0 = Not at all Becoming easily annoyed or irritable: 1 = Several days Feeling afraid as if something awful might happen: 0 = Not at all Total CHRISTIE-7 score (0-4 normal; 5-9 mild; 10-14 moderate; 15-21 severe): 5 Source: Developed by Drs. Taiwo Zavaleta, Harish Maldonado and colleagues, with an educational abiodun from [employer]. CHRISTIE-7 Assessment Billing CHRISTIE-7 Assessment Tool: CHRISTIE-7 Assessment 87338 Physical exam (Primary Care) Tobacco/Smoking Status: Tobacco use Status Tobacco use date assessed 06/25/23 02/29/24 15:55 Patient Tobacco Use Status Never used Tobacco 02/29/24 15:55 e-Cigarette/Vaping Use Never Used 02/29/24 15:55 Depression Screening Interpretation: Positive Thrive Assessment: Date of Thrive Assessment Date Thrive assessed 01/21/24 02/29/24 15:55 Telehealth Telehealth Telehealth Platform: [facility] Location of provider rendering services: practice address Location of patient: address on file Patient Identification confirmed using: Name, : Yes Telehealth method: voice only Patient verbally consented to treatment: Yes Patient verbally consented to billing insurance company: Yes Patient informed of any privacy concerns related to visit: Yes Minutes spent on Phone/Video with Pt.: 10 Coding Level of Care Code Tele Est Pt Level 2 (64108) Complex EM visit Add On G2211 Diagnoses CHRISTIE (generalized anxiety disorder) F41.1 Mild episode of recurrent major depressive disorder F33.0 Major depression recurrence: recurrent Active/Remission status: currently active Major depression episode severity: mild Additional Codes CHRISTIE-7 Assessment Billing - CHRISTIE-7 Assessment Tool: CHRISTIE-7 Assessment 36645 ([id number]) Assessment & Plan Assessment & Plan (1) CHRISTIE (generalized anxiety disorder): Code(s): F41.1 - Generalized anxiety disorder Category: Medical (2) MDD (major depressive disorder): Comment: in counseling Code(s): F32.9 - Major depressive disorder, single episode, unspecified Category: Medical Qualifiers: Major depression recurrence: recurrent Active/Remission status: currently active Major depression episode severity: mild Qualified Code(s): F33.0 - Major depressive disorder, recurrent, mild Plan . Medications: New paroxetine HCl (Paxil) 20 mg PO DAILY 90 tabs 0RF Discontinued paroxetine HCl Discontinued Reason: Doctor's Order 10 mg PO DAILY 90 tabs 1RF
== END 2024-06-07 17:05 | disposition home or self-care (01) ==
LOC: HO.HMCFM 14:40
PROVIDERS: PCP Nurse Practitioner Family; Visit Provider Nurse Practitioner Family
DX: F41.1 Generalized anxiety disorder (principal); F33.0 Major depressive disorder, recurrent, mild

== ENCOUNTER → 2024-06-07 14:40 | Outpatient (BNVA) | payer OTHER, SELFPAY | PROVIDERS: PCP Nurse Practitioner Family; Visit Provider Nurse Practitioner Family | DX: F41.1 Generalized anxiety disorder (principal); F33.0 Major depressive disorder, recurrent, mild | CPT/HCPCS: 96127 ==

== ENCOUNTER → 2024-07-19 14:33 | Outpatient (BNVA) | payer OTHER, SELFPAY | PROVIDERS: PCP Nurse Practitioner Family; Visit Provider Nurse Practitioner Family | DX: Z13.89 Encounter for screening for other disorder (principal) ==

== ENCOUNTER 2024-07-20 14:51 | Outpatient (AMB) | payer OTHER, SELFPAY ==
--- NOTE | 2024-07-20 14:53 | A.OFFPC_ITS ---
Intake Visit Reasons: paxil increase Intake Note: Telehealth med review Drug Safety Physician Required: No Allergies cats Allergy (Intermediate, Uncoded 07/20/24 16:38) watery eyes, shortness of breath. Medication List - Last Reconciled 07/20/24 by Deyanira Tomas, [facility] albuterol sulfate 90 mcg/actuation 2 puffs PO Q4H PRN cetirizine 10 mg PO DAILY cyclobenzaprine 10 mg PO BEDTIME PRN fluticasone propionate 110 mcg/actuation 1 puff inhalation BID fluticasone propionate 50 mcg/actuation (Allergy Relief (fluticasone)) 2 sprays intranasal DAILY PRN ipratropium bromide 2 sprays intranasal BID meloxicam 15 mg PO DAILY PRN montelukast 10 mg PO DAILY multivitamin 1 tab PO DAILY paroxetine HCl (Paxil) 20 mg PO DAILY Tobacco use date assessed: 06/07/24 Dental Screening Dental Screen Date: 06/07/24 HPI HPI Comments History of Present Illness Details 34-year-old female with hepatosteatosis, GERD, mild intermittent asthma, cannabis use disorder, TMJ, migraines, MDD, CHRISTIE , seasonal allergies FU Anxiety Mood is great on Paxil 20mg Cont in counseling Broke up w/ girlfriend, this is a + thing Still living together but working on getting seperate arrangements will visit family over the summer looking fwd to end of school year breathing/allergies well controlled. needs refills on current meds Plan Cont paxil and counseling Refill on all meds sent RTO over the summer for CPE, sooner PRN Telehealth Attestation This encounter was conducted via telehealth. I attest that the documentation accurately reflects the details of the encounter. The patient has been explained that this is an interactive (audio/video) telehealth encounter and what that consists of. The patient understands and wishes to proceed. [employer] platform was used. Total time spent caring for the patient today was 15 minutes. This includes time spent before the visit reviewing the chart, time spent during the visit, and time spent after the visit on documentation, reviewing laboratory results, diagnostic imaging, medications, performing a medically necessary evaluation, counseling on diagnoses, care coordination, ordering appropriate tests, ordering appropriate medications, review of tests performed by other providers, reporting test results with the patient, communication with other healthcare providers. [facility] Medical History Migraines Asthma Obesity (BMI 30-39.9) Back pain Adjustment disorder Seasonal allergies Surgical History S/P laparoscopic sleeve gastrectomy Family History (Updated 06/18/23 @ 08:30 by Rhoda Brooks CMA) Mother Pre-diabetes Father Hypertension Vertigo Brother No problems noted. Sister Asthma Social History (Updated 06/18/23 @ 08:31 by Rhoda Brooks CMA) Household Members: Spouse Housing: Apartment Are you a primary childcare attendant to a significant other at home: No Do you presently have visiting nurse or other home services: No Alcohol intake: current Alcohol intake frequency: holidays/special occasions only Alcohol type: wine Patient Tobacco Use Status: Never used Tobacco e-Cigarette/Vaping Use: Never Used Second Hand Smoke Exposure: No Substance Use Type: Marijuana service: No Current occupational status: employed Current occupation: [employer] Cognitive needs: No Hearing needs: No Vision needs: Yes Questionnaire Thrive Questionnaire Date Thrive assessed: 01/21/24 CHRSITIE-7 AMB Questionnaire CHRISTIE-7 Date CHRISTIE - 7 assessed: 06/07/24 Source: Developed by Drs. Taiwo Zavaleta, Jeana Childress, Harish Nance and colleagues, with an educational abiodun from [facility]. Physical exam (Primary Care) Tobacco/Smoking Status: Tobacco use Status Tobacco use date assessed 06/07/24 07/20/24 14:55 Patient Tobacco Use Status Never used Tobacco 07/20/24 14:55 e-Cigarette/Vaping Use Never Used 07/20/24 14:55 Thrive Assessment: Date of Thrive Assessment Date Thrive assessed 01/21/24 07/20/24 14:55 Telehealth Telehealth Telehealth Platform: [facility] Location of provider rendering services: practice address Location of patient: address on file Patient Identification confirmed using: Name, : Yes Telehealth method: voice only Patient verbally consented to treatment: Yes Patient verbally consented to billing insurance company: Yes Patient informed of any privacy concerns related to visit: Yes Minutes spent on Phone/Video with Pt.: 10 Coding Level of Care Code Tele Est Pt Level 2 (97152) Complex EM visit Add On G2211 Diagnoses Asthma, mild intermittent, well-controlled J45.20 Mild episode of recurrent major depressive disorder F33.0 Major depression recurrence: recurrent Active/Remission status: currently active Major depression episode severity: mild CHRISTIE (generalized anxiety disorder) F41.1 Assessment & Plan Assessment & Plan (1) Asthma, mild intermittent, well-controlled: Comment: . Code(s): J45.20 - Mild intermittent asthma, uncomplicated Category: Medical (2) MDD (major depressive disorder): Comment: in counseling Code(s): F32.9 - Major depressive disorder, single episode, unspecified Category: Medical Qualifiers: Major depression recurrence: recurrent Active/Remission status: currently active Major depression episode severity: mild Qualified Code(s): F33.0 - Major depressive disorder, recurrent, mild (3) CHRISTIE (generalized anxiety disorder): Code(s): F41.1 - Generalized anxiety disorder Category: Medical Plan . Medications: Refilled paroxetine HCl (Paxil) 20 mg PO DAILY 90 tabs 1RF fluticasone propionate 110 mcg/actuation 1 puff inhalation BID 12 grams 12RF albuterol sulfate 90 mcg/actuation 2 puffs PO Q4H PRN 8.5 grams 5RF bronchospasm montelukast 10 mg PO DAILY 90 tabs 3RF
== END 2024-07-20 17:08 | disposition home or self-care (01) ==
LOC: HO.HMCFM 14:51
PROVIDERS: PCP Nurse Practitioner Family; Visit Provider Nurse Practitioner Family
DX: J45.20 Mild intermittent asthma, uncomplicated (principal); F33.0 Major depressive disorder, recurrent, mild; F41.1 Generalized anxiety disorder

== ENCOUNTER → 2024-07-20 14:51 | Outpatient (BNVA) | payer OTHER, SELFPAY | PROVIDERS: PCP Nurse Practitioner Family; Visit Provider Nurse Practitioner Family | DX: Z13.89 Encounter for screening for other disorder (principal) ==

== ENCOUNTER 2024-10-04 13:00 | Outpatient (AMB) | payer OTHER, SELFPAY ==
--- NOTE | 2024-10-04 13:02 | A.OFFPC_ITS ---
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 Medication List - Last Reconciled 10/04/24 by Deyanira Tomas [facility] albuterol sulfate 90 mcg/actuation 2 puffs PO Q4H PRN cetirizine 10 mg PO DAILY cyclobenzaprine 10 mg PO BEDTIME PRN fluticasone propionate 50 mcg/actuation (Allergy Relief (fluticasone)) 2 sprays intranasal DAILY PRN fluticasone propionate 110 mcg/actuation 1 puff inhalation BID ipratropium bromide 2 sprays intranasal BID meloxicam 15 mg PO DAILY PRN montelukast 10 mg PO DAILY multivitamin 1 tab PO DAILY paroxetine HCl (Paxil) 20 mg PO DAILY Tobacco use date assessed: 10/04/24 Dental Screening Dental Screen Date: 10/04/24 Did you have a dental visit in the last 12 months?: No Did you have a dental problem in the last 6 months where you did not have access to dental care?: No Was dental information given to patient?: Yes HPI HPI Comments History of Present Illness Details 34-year-old female with hepatosteatosis, GERD, mild intermittent asthma, cannabis use disorder, TMJ, migraines, adjustment disorder, seasonal a llergies [place] [facility] [place] Social: 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 Living w/ sister. Family hx: No changes. Health maintenance Pap over due, last pap about 5 years ago, new referral placed . Vaccines: Tdap 05/2023 Specialists Bariatric surgery * no longer following Behavioral health [facility] [facility] [facility] Optho - wears glasses, last exam within the year escitalopram 15mg History of Present Illness - The patient is a 34-year-old female pr esenting with a complete physical examination. - Mild intermittent asthma well managed with fluticasone and albuterol. - Seasonal allergies well controlled on montelukast, ipratropium, Flonase, and Zyrtec. - Early refill request placed for celina ukast due since lost supply. - Major depressive disorder and generali zed anxiety disorder managed with Paxil, condition stable and counseling ongoing. - History of R ankle sprain from two mon ths prior; occasional swelling and pain persists. - Past gastrectomy with no stated compli cations. - Overweight with BMI of 34.2. - Past screening tests within normal jarvis its in May 2023. No new family medical history issues reported. Past Surgical History - Gastrectomy Family History - Denies changes in family medical histo ry. 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 - Recently experienced a separation but lima well, living with sister. - Feels safe at home and is actively eng aged in counseling services. - Tetanus vaccination is up to date. Health Maintenance - Tetanus vaccination is up-to-date. - Previous pap smear referral from last year uncompleted; updated referral placed for STAFF PHYSICAL THERAPIST. - Encouraged appropriate intervals for s creenings and vaccination continuity. - Screening labs from May 2023 were n ormal. Review of Systems - Respiratory: Denies issues when medica tion is taken. - Allergies: Denies symptoms when on cur rent regimen. - Psychiatric: Reports stable mood and a nxiety. - Dermatologic: Denies skin changes. - Gastrointestinal: Denies changes in raj wel or bladder habits. Physical Exam General: Well developed, well nourished, in no acute distress. Appears stated age. BMI of 34.2. Head: Normocephalic, atraumatic. Eyes: Pupils are equal, round and reactive to light and accommodation. Conjunctivae are clear. Vision grossly normal. Ears: TMs clear AU, EACS WNL. Nose: Patent, without discharge. Neck: Supple, no adenopathy, + thyromegaly w/o tenderness. Breast: Edu on SBE. Doing self breast exams. Lungs: Clear to auscultation bilaterally. No rales, rhonchi or wheeze noted. Good air flow in all saavedra. Heart: Regular rate and rhythm. No murmurs, click, rubs or gallops are noted. Abdomen: Bowel sounds present in all quadrants. The abdomen is soft, nontender, with no masses or organomegaly noted. No hernias are noted. : Deferred. Reviewed recommendations for routine [employer]. Pulses: Peripheral pulses are equal and palpable bilaterally. Extremities: No clubbing, cyanosis nor edema is noted. Neurologic: Gait and station normal. Cranial Nerves 2-12 intact. Motor strength grossly symmetrical and intact. No sensory loss. Balance normal. Skin: No rashes, ulcers, or lesions noted. Turgor is good. Skin color is good. Hair and nails are without abnormalities. No changes in skin. Psych: Normal eye contact, affect and mood appropriate, and normal interactions. Patient is alert and appropriate to context. Results - Labs: Screening results in May 2023 normal. - May 2023 labs were normal, covering cholesterol and diabetes screenings. Discussion Notes I discussed with the patient the importance of maintaining asthma and allergy medications, ensuring the early refill request for montelukast was submitted. We reviewed the management of her depressive and anxiety disorders, ensuring stability with current Paxil dosage and noted ongoing counseling as beneficial. I informed her about completing the previously referred pap smear and placed a new referral to women's health. We addressed the sprained ankle, advising continued vigilance for symptoms, informing that sprains can take time to resolve, sometimes longer than fractures. I emphasized yearly general screenings and maintained dialogue about health maintenance strategies such as vaccinations and regular health checks. Assessment and Plan 1. Asthma - Continue fluticasone, albuterol PRN. - follow-up . 2. Seasonal Allergies - Refill montelukast early. - Maintain regimen. 3. Major Depressive/Anxiety Disorder - Continue Paxil, counseling ongoing. 4. Overweight - Lifestyle changes advised. 5. Ankle Sprain - Monitor, use brace. 6. Health Maintenance - STAFF PHYSICAL THERAPIST referral; pursue yearly screeni ngs. RTO FEB-APR MOOD/ASTHMA FU SOONER PRN Patient Instructions - Continue taking asthma and allergy med ications as prescribed. 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 - Maintain mental health regimen and cou nseling. - Use ankle brace as needed; rest if swo llen or painful. - Follow up for gynecological screening when they contact you. - Follow lifestyle advice for weight man agement. - Contact us through the portal for [facility] th changes or needs. Consent Patient was informed and verbally consented to the use of an ambient scribe for clinic note documentation during this visit. [facility] Medical History (Updated 10/04/24 @ 14:01 by JESSIE Salinas) Adjustment disorder Asthma Back pain Migraines Obesity (BMI 30-39.9) Seasonal allergies Surgical History (Updated 10/04/24 @ 14:01 by JESSIE Salinas) S/P laparoscopic sleeve gastrectomy Family History (Updated 06/18/23 @ 08:30 by Rhoda Brooks [facility]) Mother Pre-diabetes Father Hypertension Vertigo Brother No problems noted. Sister Asthma Social History (Updated 06/18/23 @ 08:31 by Rhoda Brooks CMA) Household Members: Spouse Housing: Apartment Are you a primary tree care foreman to a significant other at home: No Do you presently have visiting nurse or other home services: No Alcohol intake: current Alcohol intake frequency: holidays/special occasions only Alcohol type: wine Patient Tobacco Use Status: Never used Tobacco e-Cigarette/Vaping Use: Never Used Second Hand Smoke Exposure: No Substance Use Type: Marijuana service: No Current occupational status: employed Current occupation: [employer] Cognitive needs: No Hearing needs: No Vision needs: Yes Questionnaire PHQ-9 Over the last 2 weeks, how often have you been bothered by any of the following problems? 1. Little interest or pleasure in doing things: not at all 2. Feeling down, depressed, or hopeless: several days 3. Trouble falling or staying asleep, or sleeping too much: several days 4. Feeling tired or having little energy: not at all 5. Poor appetite or overeating: several days 6. Feeling bad about yourself - or that you are a failure or have let yourself or your family down: not at all 7. Trouble concentrating on things, such as reading the newspaper or watching television: several days 8. Moving or speaking so slowly that other people could have noticed. Or the opposite - being so fidgety or restless that you have been moving around a lot more than usual: not at all 9. Thoughts that you would be better off or of hurting yourself in some way: not at all Total score: 4 Depression Screening Interpretation: Negative Depression Screening Done: Yes 18235 - PHQ-9 Billing: Yes Source: Developed by Drs. Taiwo Zavaleta, Jeana Childress, Harish Nance and colleagues, with an educational abiodun from [employer]. Thrive Questionnaire Date Thrive assessed: 10/04/24 I am a: Patient What is your living situation today?: I have a steady place to live Within the past 12 months, did the food you bought not last and you didn't have the money to get more?: Never true Within the past 12 months, did you worry whether your food would run out before you got money to buy more?: Never true Do you have trouble paying for medicines?: No Do you have trouble getting transportation to medical appointments?: No Do you have trouble paying your heating and electricity bill?: No Do you have trouble taking care of your child, family member or friend?: No Do you have trouble with day-to-day activities such as bathing, preparing meals, shopping, managing finances, etc.?: No Are you currently unemployed and looking for a job?: No Are you interested in more education?: No Please select the resources that you would like help with: None Currently or been in a relationship where the following occur: No concerns reported THRIVE Score: 0 AUDIT C Alcohol Use Questionnaire (AUDIT-C) 1. How often do you have a drink containing alcohol?: 2-4 times a month Total Score: 2 Score Reviewed/Action Taken: Yes CHRISTIE-7 AMB Questionnaire CHRISTIE-7 Date CHRISTIE - 7 assessed: 10/04/24 Feeling nervous, anxious, or on edge: 1 = Several days Not being able to stop or control worryin = Not at all Worrying too much about different things: 1 = Several days Trouble relaxin = Several days Being so restless that it is hard to sit still: 1 = Several days Becoming easily annoyed or irritable: 0 = Not at all Feeling afraid as if something awful might happen: 0 = Not at all Total CHRISTIE-7 score (0-4 normal; 5-9 mild; 10-14 moderate; 15-21 severe): 4 Source: Developed by Drs. Taiwo Zavaleta, Harish Maldonado and colleagues, with an educational abiodun from [employer]. CHRISTIE-7 Assessment Billing CHRISTIE-7 Assessment Tool: CHRISTIE-7 Assessment 25877 ACT Questionnaire In the past 4 weeks, how much of the time did your asthma keep you from getting as much done at work, school or at home?: None of the time During the past 4 weeks, how often have you had shortness of breath?: Not at all During the past 4 weeks, how often did your asthma symptoms wake you up at night or earlier than usual in the morning?: Not at all During the past 4 weeks, how often have you had to use your rescue inhaler or nebulizer medication?: Not at all How would you rate your asthma control during the past 4 weeks?: Completely controlled ACT Interpretation: Negative Score: 25 Physical exam (Primary Care) Vital Signs: Last Vital Signs Temp 97.4 F 10/04/24 13:16 Pulse 78 10/04/24 13:16 Resp 12 10/04/24 13:16 BP 102/67 10/04/24 13:16 Pulse Ox 98 10/04/24 13:16 Oxygen Delivery Method Room Air 10/04/24 13:16 BMI result Body Mass Index 34.2 BMI Assessment/Plan discussion: High BMI High, discussed plan: lifestyle Tobacco/Smoking Status: Tobacco use Status Tobacco use date assessed 10/04/24 10/04/24 13:03 Patient Tobacco Use Status Never used Tobacco 10/04/24 13:03 e-Cigarette/Vaping Use Never Used 10/04/24 13:03 PHQ-9: PHQ-9 Score PHQ-9: Total score 4 10/04/24 13:03 Depression Screening Interpretation: Negative Thrive Assessment: Date of Thrive Assessment Date Thrive assessed 10/04/24 10/04/24 13:03 Currently or been in a relationship where the following occur: No concerns reported Coding Level of Care Code Est Pt Prev Care 18-39y(80857) Diagnoses Physical exam, annual Z00.00 Mild episode of recurrent major depressive disorder F33.0 Major depression recurrence: recurrent Active/Remission status: currently active Major depression episode severity: mild CHRISTIE (generalized anxiety disorder) F41.1 S/P laparoscopic sleeve gastrectomy Z98.84 Gastroesophageal reflux disease without esophagitis K21.9 Esophagitis presence: without esophagitis Steatosis, liver K76.0 Asthma, mild intermittent, well-controlled J45.20 Seasonal allergies J30.2 Obesity (BMI 30-39.9) E66.9 Sprain of other ligament of right ankle, sequela S93.491S Encounter type: sequela Involved ligament of ankle: other ligament Additional Codes CHRISTIE-7 Assessment Billing - CHRISTIE-7 Assessment Tool: CHRISTIE-7 Assessment 47712 ([id number]) PHQ-9 - 10770 - PHQ-9 Billing: Yes ([id number]) Asthma Control Questionnaire - ACT Interpretation: Negative ([id number]) Assessment & Plan Assessment & Plan (1) Physical exam, annual: Onset Date: ~10/04/24 Code(s): Z00.00 - Encounter for general adult medical examination without abnormal findings Category: Medical (2) MDD (major depressive disorder): Comment: in counseling Code(s): F32.9 - Major depressive disorder, single episode, unspecified Category: Medical Qualifiers: Major depression recurrence: recurrent Active/Remission status: currently active Major depression episode severity: mild Qualified Code(s): F33.0 - Major depressive disorder, recurrent, mild (3) CHRISTIE (generalized anxiety disorder): Code(s): F41.1 - Generalized anxiety disorder Category: Medical (4) S/P laparoscopic sleeve gastrectomy: Comment: . No longer following bariatric surgery per her choice. Code(s): Z98.84 - Bariatric surgery status Category: Surgical (5) GERD (gastroesophageal reflux disease): Comment: Resolved status post gastric sleeve Code(s): K21.9 - Gastro-esophageal reflux disease without esophagitis Category: Medical Qualifiers: Esophagitis presence: without esophagitis Qualified Code(s): K21.9 - Gastro-esophageal reflux disease without esophagitis (6) Steatosis, liver: Comment: . Ultrasound done in the past to rule out fibrosis. Code(s): K76.0 - Fatty (change of) liver, not elsewhere classified Category: Medical (7) Asthma, mild intermittent, well-controlled: Comment: . Code(s): J45.20 - Mild intermittent asthma, uncomplicated Category: Medical (8) Seasonal allergies: Code(s): J30.2 - Other seasonal allergic rhinitis Category: Medical (9) Obesity (BMI 30-39.9): Code(s): E66.9 - Obesity, unspecified Category: Medical (10) Right ankle sprain: Onset Date: 08/2024 Code(s): S93.401A - Sprain of unspecified ligament of right ankle, initial encounter Category: Medical Qualifiers: Encounter type: sequela Involved ligament of ankle: other ligament Qualified Code(s): S93.491S - Sprain of other ligament of right ankle, sequela Plan . Orders: Referrals STAFF PHYSICAL THERAPIST Referral Z12.4 - Encounter for screening for malignant neoplasm of cervix Medications: Refilled fluticasone propionate 110 mcg/actuation 1 puff inhalation BID 12 grams 12RF albuterol sulfate 90 mcg/actuation 2 puffs PO Q4H PRN 8.5 grams 5RF bronchospasm paroxetine HCl (Paxil) 20 mg PO DAILY 90 tabs 1RF montelukast 10 mg PO DAILY 90 tabs 3RF Patient Instructions: Health screenings for women You should visit your health care provider from time to time, even if you are healthy. The purpose of these visits is to: Screen for medical issues Assess your risk for future medical problems Encourage a healthy lifestyle Update vaccinations and other preventive care services Help you get to know your provider in case of an illness Information Even if you feel fine, you should still see your provider for regular checkups. These visits can help you avoid problems in the future. For example, the only way to find out if you have high blood pressure is to have it checked regularly. High blood sugar and high cholesterol levels also may not have any symptoms in the early stages. A simple blood test can check for these conditions. There are specific times when you should see your provider or receive specific health screenings. The [place] Preventive Services Task Force publishes a list of recommended screenings. Below are screening guidelines for women ages 18 to 39. BLOOD PRESSURE SCREENING Your blood pressure should be checked at least once every 3 to 5 years if: Your blood pressure is in the normal range (top number less than 120 mm Hg and bottom number less than 80 mm Hg) You don't have risk factors for high blood pressure Ask your provider if you need your blood pressure checked more often if: The top number is 120 to 129 mm Hg or the bottom number is 70 to 79 mm Hg You have diabetes, heart disease, kidney problems, are overweight, or have certain other health conditions You have a first-degree relative with high blood pressure You are Black You had high blood pressure during a If the top number is 130 mm Hg or greater or the bottom number is 80 mm Hg or greater, this is considered stage 1 hypertension. Schedule an appointment with your provider to learn how you can reduce your blood pressure. Watch for blood pressure screenings in your area. Ask your provider if you can stop in to have your blood pressure checked. BREAST CANCER SCREENING Experts do not agree about the benefits of breast self-exams in finding breast cancer or saving lives. Talk to your provider about what is best for you. A screening mammogram is not recommended for most women under age 40. Your provider may discuss and recommend mammograms, MRI scans, or ultrasounds if you have an increased risk for breast cancer, such as: A mother or sister who had breast cancer at a young age (most often starting screening earlier than the age the close relative was diagnosed) You carry a high-risk genetic marker CERVICAL CANCER SCREENING Cervical cancer screening should start at age 21 years unless your provider advises otherwise. After the first test: Women ages 21 through 29 should have a Pap test every 3 years. Exoprts do not agree on whether HPV testing is recommended for this age group. Women ages 30 through 65 should be screened with either a Pap test every 3 years or the HPV test every 5 years or both tests every 5 years (called cotesting ). Women who have been treated for precancer (cervical dysplasia) should continue to have Pap tests for 20 years after treatment or until age 65, whichever is ofelia kvng. If you have had your uterus and cervix removed (total hysterectomy), and you have not been diagnosed with cervical cancer or precancer (high grade cervical neoplasia), you do not need cervical cancer screening. CHOLESTEROL SCREENING Cholesterol screening should begin at: Age 45 for women with no known risk factors for coronary heart disease Age 20 for women with known risk factors for coronary heart disease Repeat cholesterol screening should take place: Every 5 years for women with normal cholesterol levels More often if changes occur in lifestyle (including weight gain and diet) More often if you have diabetes, heart disease, kidney problems, or certain other conditions DIABETES SCREENING You should be screened for diabetes starting at age 35 and then repeated every 3 years if you have no risk factors for diabetes. Screening may need to start earlier and be repeated more often if you have other risk factors for diabetes, such as: You have a first degree relative with diabetes. You are overweight or have obesity. You have high blood pressure, prediabetes, or a history of heart disease. Screening for diabetes should be done if you are planning to become and you are overweight and have other risk factors such as high blood pressure. DENTAL EXAM Go to the dentist once or twice every year for an exam and cleaning. Your dentist will evaluate if you need more frequent visits. EYE EXAM Have an eye exam every 5 to 10 years before age 40. If you have vision problems, have an eye exam every 2 years or more often if recommended by your provider. You should have an eye exam that includes an examination of your retina (back of your eye) at least every year if you have diabetes. IMMUNIZATIONS Commonly needed vaccines include: Flu shot: get one every year. COVID-19 vaccine: ask your provider what is best for you. Tetanus-diphtheria and acellular pertussis (Tdap) vaccine: have one at or after age 19 as one of your tetanus-diphtheria vaccines if you did not receive it as an adolescent. Tetanus-diphtheria: have a booster (or Tdap) every 10 years. Varicella vaccine: receive 2 doses if you never had chickenpox or the varicella vaccine. Hepatitis B vaccine: receive 2, 3, or 4 doses, depending on your exact circumstances. Measles, mumps, and rubella (MMR) vaccine: receive 1 to 2 doses if you are not already immune to MMR. Your provider can tell you if you are immune. Ask your provider about the human papillomavirus (HPV) vaccine if: You have not received the HPV vaccine in the past You have not completed the full vaccine series (you should catch up on this shot) Ask your provider if you should receive other immunizations if you have certain health problems that increase your risk for some diseases such as pneumonia. INFECTIOUS DISEASE SCREENING Women who are sexually active should be screened for chlamydia and gonorrhea up until age 25. Women 25 years and older should be screened for chlamydia and gonorrhea if at high risk. Screening for hepatitis C: All adults ages 18 to 79 should get a one-time test for hepatitis C. people should be screened at every . Screening for human immunodeficiency virus (HIV): All people ages 15 to 65 should get a one-time test for HIV. Depending on your lifestyle and medical history, you may also need to be screened for infections such as syphilis and HIV, as well as other infections. PHYSICAL EXAM All adults should visit their provider from time to time, even if they are healthy. The purpose of these visits is to: Screen for disease Assess your risk of future medical problems Encourage a healthy lifestyle Update your vaccinations and other preventive care services Maintain a relationship with a provider in case of an illness Your height, weight, and BMI should be checked at every exam. During your exam, your provider may ask you about: Depression and anxiety Diet and exercise Alcohol and tobacco use Safety issues, such as using seat belts, smoke detectors, and intimate partner violence Your medicines and risk for interactions SKIN SELF-EXAM Your provider may check your skin for signs of skin cancer, especially if you're at high risk, such as if you: Have had skin cancer before Have close relatives with skin cancer Have a weakened immune system OTHER SCREENING Talk with your provider about colon cancer screening if you have a strong family history of colon cancer or polyps, or if you have had inflammatory bowel disease or polyps yourself. Routine bone density screening of women under 40 is not recommended.
[2024-10-04 13:16] VITALS: BP 102/67; PULSE 78; RESP 12; TEMP 36.3; O2SAT 98; BMI 34.2
== END 2024-10-04 13:53 | disposition home or self-care (01) ==
LOC: HO.HMCFM 13:01
PROVIDERS: PCP Nurse Practitioner Family; Visit Provider Nurse Practitioner Family
DX: Z00.00 Encounter for general adult medical examination without abnormal findings (principal); F33.0 Major depressive disorder, recurrent, mild; E66.9 Obesity, unspecified; Z68.34 Body mass index [BMI] 34.0-34.9, adult; F41.1 Generalized anxiety disorder; Z98.84 Bariatric surgery status; K21.9 Gastro-esophageal reflux disease without esophagitis; K76.0 Fatty (change of) liver, not elsewhere classified; J45.20 Mild intermittent asthma, uncomplicated; J30.2 Other seasonal allergic rhinitis; S93.491S Sprain of other ligament of right ankle, sequela

== ENCOUNTER → 2024-10-04 13:00 | Outpatient (BNVA) | payer OTHER, SELFPAY | PROVIDERS: PCP Nurse Practitioner Family; Visit Provider Nurse Practitioner Family | DX: Z00.00 Encounter for general adult medical examination without abnormal findings (principal); K21.9 Gastro-esophageal reflux disease without esophagitis; J45.20 Mild intermittent asthma, uncomplicated; M26.609 Unspecified temporomandibular joint disorder, unspecified side; G43.909 Migraine, unspecified, not intractable, without status migrainosus; J45.909 Unspecified asthma, uncomplicated; F41.9 Anxiety disorder, unspecified; F33.0 Major depressive disorder, recurrent, mild; F41.1 Generalized anxiety disorder; K76.0 Fatty (change of) liver, not elsewhere classified; E66.9 Obesity, unspecified; S93.491S Sprain of other ligament of right ankle, sequela; X58.XXXS Exposure to other specified factors, sequela; Z98.84 Bariatric surgery status; Z68.34 Body mass index [BMI] 34.0-34.9, adult | CPT/HCPCS: 96127; 96160 ==

== ENCOUNTER 2025-01-24 15:08 | Outpatient (AMB) | payer OTHER, SELFPAY ==
--- NOTE | 2025-01-24 15:09 | A.OFFVIS_ITS ---
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 Medication List - Last Reconciled 01/24/25 by Angelina Terrell CNM albuterol sulfate 90 mcg/actuation 2 puffs PO Q4H PRN cetirizine 10 mg PO DAILY cyclobenzaprine 10 mg PO BEDTIME PRN fluticasone propionate 110 mcg/actuation 1 puff inhalation BID fluticasone propionate 50 mcg/actuation (Allergy Relief (fluticasone)) 2 sprays intranasal DAILY PRN ipratropium bromide 2 sprays intranasal BID meloxicam 15 mg PO DAILY PRN montelukast 10 mg PO DAILY paroxetine HCl (Paxil) 20 mg PO DAILY Is last menstrual period known: Yes Last menstrual period: 12/20/24 Post menopausal: No Patient : No HPI HPI New patient Annual: Details: Patient is here for new spring forger annual exam. It has been about 5 years since she has had a spring forger visit it was down in [facility]. 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 She has never had an abnormal Pap smear she is not on control she is sexually active partners female so she does not need control. Her periods do always come regularly. She lost about 50 lb after gastric sleeve she has gained a little bit back and she is going to get read on that. She is current with her primary care provider and recently had some blood work and she will be seeing her primary care provider again coming up in the next month. She has no family history of breast cancer she does not have any other health concerns.. She likes walking and hiking for exercise. [facility], [facility] Medical History Migraines Asthma Obesity (BMI 30-39.9) Back pain Adjustment disorder Seasonal allergies Surgical History S/P laparoscopic sleeve gastrectomy Family History Mother Pre-diabetes Father Hypertension Vertigo Brother No problems noted. Sister Asthma Social History (Updated 06/18/23 @ 08:31 by Rhoda Brooks CMA) Household Members: Spouse Housing: Apartment Are you a primary healthcare administrator to a significant other at home: No Do you presently have visiting nurse or other home services: No Alcohol intake: current Alcohol intake frequency: holidays/special occasions only Alcohol type: wine Patient Tobacco Use Status: Never used Tobacco e-Cigarette/Vaping Use: Never Used Second Hand Smoke Exposure: No Substance Use Type: Marijuana service: No Current occupational status: employed Current occupation: [email or web address] Cognitive needs: No Hearing needs: No Vision needs: Yes Female Reproductive History Menstrual Age of Menarche: 9 Duration of menses: 3-5 days Date of last menstrual period: 12/20/24 control method: none History of abnormal pap smear: No Physical Exam Vital Signs: Last Vital Signs BP 118/80 01/24/25 15:16 BMI result Body Mass Index 35.5 Const General: healthy appearing, comfortable, no acute distress, well developed and alert Nutritional Appearance: average body habitus Orientation/consciousness: patient oriented x3 Limitations: no limitations HEENT Head: Yes normocephalic Neck Neck: Yes normal visual inspection Chest Chest palpation & inspection: normal inspection of the chest Breast/axilla inspection: normal inspection of the breasts and normal inspection of the axillae Breast/axilla palpation: normal palpation of the breasts and normal palpation of the axillae Resp Effort & Inspection: normal respiratory effort GI Inspection: Yes normal to inspection, No Abdominal wall edema and No distended Palpation (GI): Soft to palpation and nontender Other: External exam within normal limits vagina is pink and moist cervix nulliparous pink smooth healthy appearing normal scant clear to white mucus. Pap smear done as well as testing for gonorrhea chlamydia trichomoniasis bacterial vaginosis and yeast and I did offer testing for other STIs but she declines. Cervix is long close thick mobile nontender difficult to feel uterus but it feels midposition and mobile nontender and not enlarged adnexa is nontender nonenlarged good tone with Kegel, General: Yes bladder normal to palpation External Female Exam: normal external appearance and normal appearance of the urethra Speculum Exam - Vagina: normal appearance of the vagina, normal palpation and normal vaginal discharge Speculum Exam - Cervix: normal appearance of the cervix, normal palpation and nontender Bimanual exam- vagina & uterus: normal bimanual exam, normal palpation, uterine size normal, bladder normal to palpation, consistency normal, normal palpation, uterine mobility normal, uterine shape normal, No Cervical tenderness present, non-tender and no cervical motion tenderness Bimanual Exam- Adnexa, other: normal adnexae, no masses, normal and No adnexal tenderness Neuro General: patient oriented x3 Assessment & Plan Assessment & Plan (1) Obesity (BMI 30-39.9): Code(s): E66.9 - Obesity, unspecified Category: Medical (2) S/P laparoscopic sleeve gastrectomy: Comment: . No longer following bariatric surgery per her choice. Code(s): Z98.84 - Bariatric surgery status Category: Surgical (3) Well woman exam with routine gynecological exam: Code(s): Z01.419 - Encounter for gynecological examination (general) (routine) without abnormal findings Category: Medical (4) Cervical cancer screening: Code(s): Z12.4 - Encounter for screening for malignant neoplasm of cervix Category: Medical (5) Screen for sexually transmitted diseases: Code(s): Z11.3 - Encounter for screening for infections with a predominantly sexual mode of transmission Category: Medical (6) Breast cancer screening: Code(s): Z12.39 - Encounter for other screening for malignant neoplasm of breast Category: Medical Plan -----Discussed in this visit the following: healthy balanced diet, regular and consistent exercise, getting recommended health screens, doing the best she can for her particular health concerns, kegel exercises, pap smear screening and followup recommendations, mammography screening and SBE, normal changes in cycles in her life stage--- . Testing done today for the Pap smear as well as gonorrhea chlamydia trichomoniasis Gardnerella/BV and yeast discussed the nature of these tests and that the latter 2 are often positive and do not have to be treated unless she is symptomatic. She does not have any need for any other spring forger testing or interventions at this time declines blood work but we will be getting some for her primary soon. She is going to be making a plan for losing some of the weight she has gained back. RTC 1 year or p.r.n. Coding Level of Care Code New Pt Prev Care 18-39yr([id number] Diagnoses Obesity (BMI 30-39.9) E66.9 S/P laparoscopic sleeve gastrectomy Z98.84 Well woman exam with routine gynecological exam Z01.419 Cervical cancer screening Z12.4 Screen for sexually transmitted diseases Z11.3 Breast cancer screening Z12.39
[2025-01-24 15:16] VITALS: BP 118/80; BMI 35.5
== END 2025-01-25 09:33 | disposition home or self-care (01) ==
LOC: HO.HWSM 15:08
PROVIDERS: PCP Nurse Practitioner Family; Visit Provider Advanced Practice Midwife
DX: Z01.419 Encounter for gynecological examination (general) (routine) without abnormal findings (principal); E66.9 Obesity, unspecified; Z98.84 Bariatric surgery status; Z11.3 Encounter for screening for infections with a predominantly sexual mode of transmission; Z12.39 Encounter for other screening for malignant neoplasm of breast
CPT/HCPCS: 99385; 99459

== ENCOUNTER 2025-01-24 15:08 | Outpatient (REF) | payer OTHER, SELFPAY | END 2025-01-24 15:09 | disposition home or self-care (01) | LOC: HO.LAB 15:08 | PROVIDERS: PCP Nurse Practitioner Family; Visit Provider Advanced Practice Midwife | DX: Z13.89 Encounter for screening for other disorder (principal) ==

== ENCOUNTER 2025-01-24 16:20 | Outpatient (REF) | payer OTHER, SELFPAY ==
[2025-01-25 15:14] LABS: Bacterial Vaginosis PCR POSITIVE (Negative); Candida Group PCR NOT DETECTED (Not Detect); Candida glab krusei PCR NOT DETECTED (Not Detect); Trichomonas vaginalis PCR NOT DETECTED (Not Detect)
[2025-01-26 04:11] LABS: CT PCR NOT DETECTED (Not Detect.); NG PCR NOT DETECTED (Not Detect.)
== END 2025-01-24 16:21 | disposition home or self-care (01) ==
LOC: HO.LNP 16:20
PROVIDERS: Visit Provider Advanced Practice Midwife
DX: Z01.419 Encounter for gynecological examination (general) (routine) without abnormal findings (principal); Z20.2 Contact with and (suspected) exposure to infections with a predominantly sexual mode of transmission
CPT/HCPCS: 81515; 87491; 87591; 87626; 88175

== ENCOUNTER 2025-03-12 09:06 | Outpatient (AMB) | payer OTHER, SELFPAY ==
--- NOTE | 2025-03-12 09:18 | A.OFFPC_ITS ---
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 Medication List - Last Reconciled 03/12/25 by Deyanira Tomas, [facility]- albuterol sulfate 90 mcg/actuation 2 puffs PO Q4H PRN cetirizine 10 mg PO DAILY cyclobenzaprine 10 mg PO BEDTIME PRN fluticasone propionate 110 mcg/actuation 1 puff inhalation BID fluticasone propionate 50 mcg/actuation (Allergy Relief (fluticasone)) 2 sprays intranasal DAILY PRN ipratropium bromide 2 sprays intranasal BID meloxicam 15 mg PO DAILY PRN montelukast 10 mg PO DAILY paroxetine HCl (Paxil) 20 mg PO DAILY Tobacco use date assessed: 10/04/24 Dental Screening Dental Screen Date: 03/12/25 Did you have a dental visit in the last 12 months?: Yes Did you have a dental problem in the last 6 months where you did not have access to dental care?: No Was dental information given to patient?: Patient has dentist HPI HPI Comments History of Present Illness Details 35-year-old female with hepatosteatosis, GERD, mild intermittent asthma, cannabis use disorder, TMJ, migraines, adjustment disorder, seasonal allergies Status post laparoscopic sleeve gastrectomy 10/2022 at [facility] Social: 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 Living w/ sister. Family hx: No changes. Health maintenance Pap over due, last pap about 5 years ago, new referral placed . Vaccines: Tdap 05/2023, Flu 03/12/25 Specialists Bariatric surgery * no longer following Behavioral health [facility] - wears glasses, last exam within the year History of Present Illness The patient is a 35 year old female presenting for a follow-up visit on her mood and asthma. Asthma and Allergic Rhinitis: - The patient was advised at her last vi sit to continue her regimen of albuterol, cetirizine, Flonase, budesonide, ipratropium, and montelukast. - She reports developing phlegm when she forgets to take her nighttime allergy medication, which has happened frequently over the last month. - She is no longer using the ipratropium or Flonase nasal sprays. - She reports her breathing is currently okay and denies any wheezing, tightne ss, or congestion. Mood Disorder: - The patient is following up on her moo d from the last visit. - She reports her mood is now a lot bet ter. - She is stable on paroxetine 20 mg neftali y. Migraine and TMJ: - The patient reports her migraines have calmed down. - She had one migraine in the last month that lasted for almost a whole day. - Her headaches are associated with temp oromandibular joint (TMJ) issues. - She treats these episodes with ibuprof en and cyclobenzaprine and has not been taking meloxicam. Ankle Sprain R: - The patient has a history of a spraine d ankle that has since resolved. - She notes there are still days when it hurts. Past Medical History - Asthma - Mood disorder, treated with paroxetine - Migraines associated with TMJ - History of ankle sprain - History of tonsil stones Review of Systems - Respiratory: Reports phlegm when she f orgets her nighttime allergy medication. Denies current wheezing, tightness, or congestion. - Psychiatric: Reports her mood is a lo t better. - Neurological: Reports her migraines khan ve calmed down, but she had one migraine this month that lasted almost a whole day. - Musculoskeletal: Reports resolved ankl e sprain with occasional residual pain. Reports TMJ issues associated with her migraines. Physical Exam General: Well developed, well nourished, in no acute distress. Appears stated age. Head: Normocephalic, atraumatic. Eyes: Pupils are equal, round and reactive to light and accommodation. Conjunctivae are clear. Ears: TM intact and clear bilat Nose: Patent Throat: tonsil stone L otherwise normal Lungs: Clear to auscultation bilaterally. No rales, rhonchi or wheeze noted. Good air flow in all saavedra. Heart: Regular rate and rhythm. No murmurs, click, rubs or gallops are noted. Psych: Mood and affect appropriate. Mood has improved significantly. Medical Decision Making The patient is a 35-year-old female here for a follow-up on her mood and asthma. Her mood has improved significantly, and she is stable on paroxetine 20 mg daily, which will be continued and refilled. Her asthma is generally controlled, but she reports increased phlegm with nonadherence to montelukast. To improve adherence, she was advised that she could switch her montelukast to the morning, as it is more effective when taken consistently than not at all. She reports no longer using her ipratropium and Flonase nasal sprays, so these will be removed from her medication list. Her migraines, which are associated with TMJ, have improved. Her prescription for cyclobenzaprine will be renewed as it is beneficial for breaking her TMJ- related headaches. The patient will receive an influenza vaccine today and was counseled on the high local prevalence of influenza. Physical exam was notable only for a benign tonsil stone. She will follow up for her annual physical in the summer. Plan 1. Asthma And Allergic Rhinitis - To improve adherence, the patient was counseled to take her montelukast (Singulair) in the morning. - Continue albuterol, cetirizine, and fl uticasone inhaler as prescribed. - Ipratropium nasal spray and fluticason e (Flonase) nasal spray were discontinued from her medication list as she is no longer using them. 2. Mood Disorder - The patient's mood is stable and impro candido. - Continue paroxetine 20 mg daily. - A prescription refill for paroxetine w ill be sent to the patient's pharmacy. 3. Migraine And Tmj - The patient's migraine frequency has d ecreased. - Her prescription for cyclobenzaprine w ill be renewed for use as needed for TMJ-related headaches. - Continue taking ibuprofen as needed. 4. Health Maintenance - Administer influenza vaccine in office today. - Counseled the patient on the high prev alence of influenza and recommended prac ticing caution. - The patient's next visit will be for h er annual physical during the summer. Patient Instructions - Your mood has improved, so please cont inue taking your paroxetine 20 mg once a day. I have sent a refill to your pharmacy. - To help you remember to take your asth ma and allergy medication, you can start taking Singulair (montelukast) in the morning instead of at night. - I have renewed your prescription for c yclobenzaprine, which you can use with ibuprofen to help with your migraines. - You will receive a flu shot today. Ple ase be careful to wash your hands often, as there are high numbers of flu cases right now. - Your next appointment should be for yo ur yearly physical in the September. Please call us if you need anything before then. Consent The patient verbally agreed to receive the influenza vaccine during the visit. Patient was informed and verbally consented to the use of an ambient scribe for clinic note documentation during this visit. [facility] Medical History Migraines Asthma Obesity (BMI 30-39.9) Back pain Adjustment disorder Seasonal allergies Surgical History S/P laparoscopic sleeve gastrectomy Family History Mother Pre-diabetes Father Hypertension Vertigo Brother No problems noted. Sister Asthma Social History (Updated 06/18/23 @ 08:31 by Rhoda Brooks [facility]) Household Members: Spouse Housing: Apartment Are you a primary healthcare administration internship to a significant other at home: No Do you presently have visiting nurse or other home services: No Alcohol intake: current Alcohol intake frequency: holidays/special occasions only Alcohol type: wine Patient Tobacco Use Status: Never used Tobacco e-Cigarette/Vaping Use: Never Used Second Hand Smoke Exposure: No Substance Use Type: Marijuana service: No Current occupational status: employed Current occupation: [employer] Cognitive needs: No Hearing needs: No Vision needs: Yes Female Reproductive History Menstrual Age of Menarche: 9 Questionnaire PHQ-9 Over the last 2 weeks, how often have you been bothered by any of the following problems? 1. Little interest or pleasure in doing things: not at all 2. Feeling down, depressed, or hopeless: not at all 3. Trouble falling or staying asleep, or sleeping too much: not at all 4. Feeling tired or having little energy: not at all 5. Poor appetite or overeating: not at all 6. Feeling bad about yourself - or that you are a failure or have let yourself or your family down: not at all 7. Trouble concentrating on things, such as reading the newspaper or watching television: not at all 8. Moving or speaking so slowly that other people could have noticed. Or the opposite - being so fidgety or restless that you have been moving around a lot more than usual: not at all 9. Thoughts that you would be better off or of hurting yourself in some way: not at all Total score: 0 Depression Screening Interpretation: Negative Depression Screening Done: Yes 24772 - PHQ-9 Billing: Yes Source: Developed by Drs. Taiwo Zavaleta, Jeana Childress, Harish Nance and colleagues, with an educational abiodun from [employer]. Thrive Questionnaire Date Thrive assessed: 03/12/25 I am a: Patient What is your living situation today?: I have a steady place to live Within the past 12 months, did the food you bought not last and you didn't have the money to get more?: Never true Within the past 12 months, did you worry whether your food would run out before you got money to buy more?: Never true Do you have trouble paying for medicines?: No Do you have trouble getting transportation to medical appointments?: No Do you have trouble paying your heating and electricity bill?: No Do you have trouble taking care of your child, family member or friend?: No Do you have trouble with day-to-day activities such as bathing, preparing meals, shopping, managing finances, etc.?: No Are you currently unemployed and looking for a job?: No Are you interested in more education?: No Please select the resources that you would like help with: None Currently or been in a relationship where the following occur: No concerns reported THRIVE Score: 0 CHRISTIE-7 AMB Questionnaire CHRISTIE-7 Date CHRISTIE - 7 assessed: 03/12/25 Feeling nervous, anxious, or on edge: 0 = Not at all Not being able to stop or control worryin = Not at all Worrying too much about different things: 0 = Not at all Trouble relaxin = Not at all Being so restless that it is hard to sit still: 0 = Not at all Becoming easily annoyed or irritable: 0 = Not at all Feeling afraid as if something awful might happen: 0 = Not at all Total CHRISTIE-7 score (0-4 normal; 5-9 mild; 10-14 moderate; 15-21 severe): 0 Source: Developed by Drs. Taiwo Zavaleta, Jeana Childress, Harish Nance and colleagues, with an educational abiodun from [employer]. CHRISTIE-7 Assessment Billing CHRISTIE-7 Assessment Tool: CHRISTIE-7 Assessment 67885 ACT Questionnaire In the past 4 weeks, how much of the time did your asthma keep you from getting as much done at work, school or at home?: A little of the time During the past 4 weeks, how often have you had shortness of breath?: 3-6 times a week During the past 4 weeks, how often did your asthma symptoms wake you up at night or earlier than usual in the morning?: 2-3 nights a week During the past 4 weeks, how often have you had to use your rescue inhaler or nebulizer medication?: 2-3 times a week How would you rate your asthma control during the past 4 weeks?: Somewhat controlled ACT Interpretation: Positive ACT Branch: Other Score: 15 Physical exam (Primary Care) Vital Signs: Last Vital Signs Temp 97.2 F 03/12/25 09:22 Pulse 84 03/12/25 09:22 Resp 12 03/12/25 09:22 BP 122/70 03/12/25 09:22 Pulse Ox 99 03/12/25 09:22 Oxygen Delivery Method Room Air 03/12/25 09:22 BMI result Body Mass Index 36.3 Tobacco/Smoking Status: Tobacco use Status Tobacco use date assessed 10/04/24 03/12/25 09:23 Patient Tobacco Use Status Never used Tobacco 03/12/25 09:23 e-Cigarette/Vaping Use Never Used 03/12/25 09:23 PHQ-9: PHQ-9 Score PHQ-9: Total score 0 03/12/25 09:39 Depression Screening Interpretation: Negative Thrive Assessment: Date of Thrive Assessment Date Thrive assessed 03/12/25 03/12/25 09:23 Currently or been in a relationship where the following occur: No concerns reported Office Procedures Flu Questionnaire Does the patient have a severe egg allergy?: No Does the patient have severe life threatening allergies?: No Does the patient have a fever or illness today?: No Has the patient ever had Guillain-[place] Syndrome?: No Has the patient ever had any past reaction to a flu shot?: No Immunizations Fluarix [id number] (PF) 45 mcg (15 mcg x 3)/0.5 mL IM syringe Performing Provider: JESSIE Salinas Performing Location: [facility] Administered by: Sally Maria MA on 03/12/25 09:39 Dose Route Admin Location Dispensed Lot Number Expiration Date NDC Spare Fixer 0.5 mL IM Right Deltoid 0.5 mL [id number] 09/18/25 99010-684-08 [employer] VIS Given Date VIS Provided VIS Publication Date 03/12/25 Single Vaccine 24 Eligibility Eligibility Date Funding Source Not [facility] Eligible 03/12/25 Private Coding Level of Care Code Est Pt Level 3 (67359) Add On Problem Visit Only Diagnoses CHRISTIE (generalized anxiety disorder) F41.1 Mild episode of recurrent major depressive disorder F33.0 Active/Remission status: currently active Major depression episode severity: mild Major depression recurrence: recurrent Seasonal allergies J30.2 Asthma, mild intermittent, well-controlled J45.20 Influenza vaccination administered at current visit Z23 Additional Codes Asthma Control Questionnaire - ACT Interpretation: Positive ([id number]) CHRISTIE-7 Assessment Billing - CHRISTIE-7 Assessment Tool: CHRISTIE-7 Assessment 32383 ([id number]) PHQ-9 - 10824 - PHQ-9 Billing: Yes ([id number]) Assessment & Plan Assessment & Plan (1) CHRISTIE (generalized anxiety disorder): Code(s): F41.1 - Generalized anxiety disorder Category: Medical (2) MDD (major depressive disorder): Comment: in counseling Code(s): F32.9 - Major depressive disorder, single episode, unspecified Category: Medical Qualifiers: Active/Remission status: currently active Major depression episode severity: mild Major depression recurrence: recurrent Qualified Code(s): F33.0 - Major depressive disorder, recurrent, mild (3) Seasonal allergies: Code(s): J30.2 - Other seasonal allergic rhinitis Category: Medical (4) Asthma, mild intermittent, well-controlled: Comment: . Code(s): J45.20 - Mild intermittent asthma, uncomplicated Category: Medical (5) Influenza vaccination administered at current visit: Onset Date: ~03/12/25 Code(s): Z23 - Encounter for immunization Category: Medical Plan . Orders: Orders Influenza [id number] Immunization Today Z23 - Encounter for immunization Influenza [id number] Immunization Today Z23 - Encounter for immunization Medications: New Fluarix (PF) (flu vac ts (6mos up)-PF) 0.5 mL IM ONCE 0.5 mL 0RF NS Z23 - Encounter for immunization Refilled paroxetine HCl (Paxil) 20 mg PO DAILY 90 tabs 1RF cyclobenzaprine 10 mg PO BEDTIME PRN 20 tabs 0RF muscle spasm Discontinued ipratropium bromide administer into each nostril Discontinued Reason: Patient Completed Course 2 sprays intranasal BID 30 mL 12RF fluticasone propionate 50 mcg/actuation (Allergy Relief (fluticasone)) administer into each nostril Discontinued Reason: Patient Completed Course 2 sprays intranasal DAILY PRN 16 grams 8RF Allergy Symptoms
[2025-03-12 09:22] VITALS: BP 122/70; PULSE 84; RESP 12; TEMP 36.2; O2SAT 99; BMI 36.3
== END 2025-03-12 09:42 | disposition home or self-care (01) ==
LOC: HO.HMCFM 09:07
PROVIDERS: PCP Nurse Practitioner Family; Visit Provider Nurse Practitioner Family
DX: F41.1 Generalized anxiety disorder (principal); F33.0 Major depressive disorder, recurrent, mild; J30.2 Other seasonal allergic rhinitis; J45.20 Mild intermittent asthma, uncomplicated; Z23 Encounter for immunization

== ENCOUNTER → 2025-03-12 09:06 | Outpatient (BNVA) | payer OTHER, SELFPAY | PROVIDERS: PCP Nurse Practitioner Family; Visit Provider Nurse Practitioner Family | DX: Z13.31 Encounter for screening for depression (principal); Z13.39 Encounter for screening examination for other mental health and behavioral disorders; Z23 Encounter for immunization; Z71.89 Other specified counseling | CPT/HCPCS: 90471; 90656; 96127; 96160 ==